=== PATIENT | female | born 1970 | race Caucasian/White ===

== ENCOUNTER 2022-10-21 09:34 | Outpatient (RCR) | payer OTHER, SELFPAY | END 2022-10-22 14:00 | disposition home or self-care (01) | LOC: PT 09:34 | PROVIDERS: PCP Family Medicine; Visit Provider Family Medicine | DX: M54.30 Sciatica, unspecified side (principal) | CPT/HCPCS: 97110; 97140 ==

== ENCOUNTER 2022-11-17 09:18 | Outpatient (OUT) | payer OTHER, SELFPAY ==
--- NOTE | 2022-11-17 09:32 | MR_ITS ---
[address] [address] Patient Name: JASON CASTRO MRN: [facility]:[id number] date: 1970 Sex: F Assigned Patient Location: MRI Current Patient Location: MRI Accession/Order Number: [id number] Exam Date: 11/17/2022 09:46 Report Date: 11/17/2022 13:55 At the request of: VANE ADORNO Procedure: MR lumbar spine wo con EXAM: MR lumbar spine wo con CLINICAL INDICATION: DORSALGIA, UNSPECIFIED M54,9, LUMBAR RADICULOPATHY M54.16 COMPARISON: None TECHNIQUE/PROTOCOL: Noncontrast lumbar spine MR protocol (Sagittal T1, T2, STIR and axial T1, T2 sequences). FINDINGS: Presumed five lumbar-type vertebral bodies with maintained heights and alignment. No marrow edema. Several small vertebral hemangiomas at L1, L3, and L5. No acute prevertebral or paraspinal soft tissue abnormalities. Conus terminates at mid L1. Visualized distal spinal cord and the cauda equina are normal in size. Incidental hyperintense T2 left renal cyst measures 1.7 cm. Mild multilevel spondylotic changes include varying degrees of intervertebral disc height loss, disc desiccation, osteophytic ridging, and facet/ligamentum flavum hypertrophy. T12-L1: Small disc bulge minimally indents the ventral thecal sac. No high-grade spinal canal or foraminal narrowing. L1-L2: No disc bulge or herniation. No high-grade spinal canal or foraminal narrowing. Mild bilateral facet/ligamentum flavum hypertrophy. L2-L3: No disc bulge or herniation. No high-grade spinal canal or foraminal narrowing. Mild bilateral facet/ligamentum flavum hypertrophy. L3-L4: Small disc bulge with superimposed central disc protrusion together efface the ventral thecal sac. A 1.8 x 1.1 x 1.1 cm hyperintense T2 cyst arises from the left facet and effaces the lateral left thecal sac with locoregional mass effect. These together contribute to moderate to advanced spinal canal narrowing. No high-grade foraminal narrowing. Mild bilateral facet/ligamentum flavum hypertrophy. Small bilateral facet effusions. L4-L5: No disc bulge or herniation. No high-grade spinal canal or foraminal narrowing. Advanced bilateral facet/ligament flavum hypertrophy. Small bilateral facet joint effusions. L5-S1: No disc bulge or herniation. No high-grade spinal canal or foraminal narrowing. IMPRESSION: 1. A 1.8 x 1.1 cm intracanalicular left facet joint cyst at L3-L4 in conjunction with a disc bulge and superimposed central disc protrusion altogether result in moderate to advanced spinal canal narrowing. There is locoregional mass effect on the thecal sac. 2. Mild multilevel spondylotic changes. No high-grade foraminal narrowing at any lumbar level. Electronically authenticated by: MATIAS CARRASCO Date: 11/17/2022 13:55
== END 2022-11-17 09:19 | disposition home or self-care (01) ==
LOC: MRI 09:18
PROVIDERS: PCP Family Medicine; Visit Provider Family Medicine
DX: M54.9 Dorsalgia, unspecified (principal); M54.16 Radiculopathy, lumbar region
CPT/HCPCS: 72148

== ENCOUNTER 2023-04-26 07:42 | Outpatient (OUT) | payer OTHER, SELFPAY ==
--- NOTE | 2023-04-26 07:46 | CT_ITS ---
[address] [address] Patient Name: JASON CASTRO MRN: [facility]:[id number] date: 1970 Sex: F Assigned Patient Location: CT Current Patient Location: CT Accession/Order Number: [id number] Exam Date: 04/26/2023 07:56 Report Date: 04/26/2023 13:08 At the request of: NON-STAFF PHYSICIAN Procedure: CT lumbar spine wo con EXAM: CT lumbar spine wo con CLINICAL INDICATION: Lumbar Spondylosis, Preprocedural Examination Z01.818 COMPARISON: MRI lumbar spine 11/17/2022. TECHNIQUE: Multiple axial images were obtained of the lumbar spine. Soft tissue and bone windows in coronal and sagittal planes were obtained and reviewed. Dose reduction techniques were achieved by using automated exposure control and/or adjustment of mA and/or kV according to patient size and/or use of iterative reconstruction technique. FINDINGS: Segmentation: Transitional lumbosacral anatomy with partial sacralization of L5. Prior to any spine procedure, please confirm vertebral body counts. Trauma: No fracture, traumatic malalignment, facet dislocation, or discrete epidural hemorrhage. Alignment: Normal. Vertebral Body Heights: Maintained. Soft Tissues: Normal. Spondylotic Changes: Multilevel spondylotic changes with osteophytic ridging, endplate sclerosis, and varying degrees of facet hypertrophy. These are better visualized in detail on MRI 11/17/2022. Known left facet joint cyst and disc bulge/protrusion at L3-L4 are also better visualized on prior MRI. CT/CT lumbar spine wo con IMPRESSION: 1. No acute osseous abnormalities in the lumbar spine 2. Transitional lumbosacral anatomy with partial sacralization of L5. Prior to any spine procedure, please confirm vertebral body counts. 3. Multilevel spondylotic changes are better visualized in detail on MRI 11/09/2022, including the known left facet joint cyst and disc bulge/protrusion at L3-L4. Electronically authenticated by: MATIAS CARRASCO Date: 04/26/2023 13:08
== END 2023-04-26 07:43 | disposition home or self-care (01) ==
LOC: CT 07:42
PROVIDERS: PCP Family Medicine
DX: Z01.818 Encounter for other preprocedural examination (principal); M43.16 Spondylolisthesis, lumbar region
CPT/HCPCS: 72131

== ENCOUNTER 2023-08-05 07:46 | Outpatient (OUT) | payer OTHER, SELFPAY ==
--- OUTSIDE RECORDS SUMMARY | 2023-08-05 07:49 | XMS_ITS | CCD ---
Author Name Unknown Address [address] [place] [address] Organization [facility] Care Team Providers Care Tax Associate Attorney Name Role Phone RADHA PERKINS Admitting Unavailable GREGORIO, RADHA Primary Care Unavailable RADHA PERKINS Consulting Unavailable RADHA PERKINS Attending Unavailable HOY ., DR CIFUENTES Admitting Unavailable HOY ., DR CIFUENTES Primary Care Unavailable HOY ., DR CIFUENTES Consulting Unavailable HOY ., DR CIFUENTES Attending Unavailable GRANDVIEW, DR CARROL Bautista Consulting Unavailable HOY ., DR CIFUENTES Admitting Unavailable HOY ., DR CIFUENTES Primary Care Unavailable HOY ., DR CIFUENTES Consulting Unavailable HOY ., DR CIFUENTES Attending Unavailable HOY ., DR CIFUENTES Admitting Unavailable HOY ., DR CIFUENTES Primary Care Unavailable HOY ., DR CIFUENTES Attending Unavailable ELGAFY, CEDRIC Admitting Unavailable ELGAFY, CEDRIC Attending Unavailable ELGAFY, CEDRIC Referring Unavailable ELGAFY, CEDRIC Attending Unavailable ELGAFY, CEDRIC Referring Unavailable ELGAFY, CEDRIC Referring Unavailable ELGAFY, CEDRIC Referring Unavailable ELGAFY, CEDRIC Referring Unavailable ELGAFY, CEDRIC Attending Unavailable ELGAFY, CEDRIC Attending Unavailable ELGAFY, CEDRIC Attending Unavailable ELGAFY, CEDRIC Attending Unavailable Allergies Allergy Classification Reported Allergen(s) Allergy Type Date of Onset Reaction(s) Facility (1 source) ALLERGIES NOT ON FILE; Translations: [ALLERGIES NOT ON FILE] Propensity to adverse reactions (disorder) [facility] Repository Problems Active Problems Problem Classification Problem Date Documented Da te Episodic/Chronic Nausea and vomiting (2 sources) Nausea; Translations: [Nausea] Onset: 05-06-2023 Episodic Other acquired deformities (2 sources) Spondylolisthesi s, lumbar region; Translations: [Spondylolisthes is, lumbar region] Onset: 05-06-2023 Episodic Other connective tissue disease (2 sources) Other bursal cyst, other site; Translations: [Other bursal cyst, other site] Onset: 06-22-2023 Episodic Residual codes; unclassified (2 sources) Pain, unspecified; Translations: [Pain, unspecified] Onset: 05-06-2023 Episodic Unclassified (3 sources) COUGH, UNSPECIFIED; Translations: [COUGH, UNSPECIFIED] Onset: 05-12-2022 Unclassified (1 source) CONTACT W/AND (SUSP) EXPOS COVID-19; Translations: [CONTACT W/AND (SUSP) EXPOS COVID-19] Onset: 05-12-2022 Unclassified (2 sources) Post-op; Translations: [Post-op] Onset: 08-03-2023 Unclassified (1 source) Low back pain, unspecified; Translations: [Low back pain, unspecified] Onset: 04-05-2023 Viral infection (4 sources) COVID-19; Translations: [COVID-19] Onset: 11-30-2021 Past or Other Problems Problem Classification Problem Date Documented Da te Episodic/Chronic Immunizations and screening for infectious disease (1 source) Encounter for immunization; Translations: [ENCOUNTER FOR IMMUNIZATION] Onset: 12-01-2021 Episodic Other screening for suspected conditions (not mental disorders or infectious disease) (4 sources) Encounter for screening mammogram for malignant neoplasm of breast; Translations: [ENC SCR MAMMO MALIG NEOPLASM BREAST] Onset: 05-07-2022 Episodic Residual codes; unclassified (1 source) Family history of malignant neoplasm of breast; Translations: [FAMILY HX MALIG NEOPLASM OF BREAST] Onset: 05-12-2022 Episodic Residual codes; unclassified (2 sources) Family history of diseases of the blood and blood-forming organs and certain disorders involving the immune mechanism; Translations: [Family history of diseases of the blood and blood-forming organs and certain disorders involving the immune mechanism] Onset: 04-27-2023 Episodic Spondylosis; intervertebral disc disorders; other back problems (4 sources) Sciatica, unspecified side; Translations: [SCIATICA UNSPECIFIED SIDE] Onset: 07-23-2022 Episodic Unclassified (1 source) COUGH, UNSPECIFIED; Translations: [COUGH, UNSPECIFIED] Onset: 05-10-2022 Unclassified (1 source) Low back pain, unspecified; Translations: [Low back pain, unspecified] Onset: 04-05-2023 Results Test Name Value Interpretation Reference Range Facility Office Visiton 08-03-2023 Follow-up visit [id number] BrowerAnn-Marie S 1970 Date Provider Department Center 08/03/2023 CEDRIC POON MP ORTHO MPORTHO No family history on file Level of Service:83901 CT POSTOP FOLLOW UP VISIT RELATED TO ORIGINAL PX (GC) Reason for Visit and Comments: Post-op [483] [facility] Refillon 07-13-2023 Refill [id number] Ann-Marie Brower 1970 Date Provider Department Center 07/13/2023 [id number] TRIVEDI [facility] No family history on file Reason for Visit and Comments: Med Refill [[id number]] [facility] Office Visiton 06-22-2023 Follow-up visit [id number] Ann-Marie Brower 1970 Date Provider Department Center 06/22/2023 CEDRIC POON MP ORTHO MPORTHO No family history on file Level of Service:62751 CT POSTOP FOLLOW UP VISIT RELATED TO ORIGINAL PX (GC) Reason for Visit and Comments: Pain [136] Post-op [483] [facility] 36on 05-30-2023 36 called in stating that they need to change her PO appointment. Also asked if they can have a refill on her pain medication. Appointment was changed to 06/22 and prescription was sent to Dr. Alexis to be signed. [facility] Refillon 05-30-2023 Refill [id number] Ann-Marie Brower 1970 Date Provider Department Center 05/30/2023 CEDRIC POON MP ORTHO MPORTHO No family history on file [facility] Office Visiton 05-19-2023 Follow-up visit [id number] Ann-Marie Brower 1970 F Date Provider Department Center 05/19/2023 CEDRIC POON MP ORTHO MPORTHO No family history on file Level of Service:70178 CT POSTOP FOLLOW UP VISIT RELATED TO ORIGINAL PX (GC) Reason for Visit and Comments: Post-op [483] [facility] 36on 05-18-2023 36 Done please fax [facility] 36 Office note needs to State rolling walker is needed because a cane is unsafe to use. Attn: Coby [phone] [facility] 36on 05-09-2023 36 What do they need Normal [facility] 36 fax number for medical supply co. 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 cholecalciferol 25 MCG (1000 units) tablet Commonly known as: Vitamin D-3 Take 1 tablet (1,000 Units) by mouth in the morning. cyclobenzaprine 5 mg tablet Commonly known as: Flexeril Take 1 tablet (5 mg) by mouth if needed in the morning, at noon, and at bedtime for muscle spasms. docusate sodium 100 mg capsule Commonly known as: Colace Take 1 capsule (100 mg) by mouth in the morning and at bedtime. ergocalciferol 1.25 MG (43566 Units) capsule Commonly known as: Vitamin D-2 Take 1 capsule (50,000 Units) by mouth 1 (one) time per week for 12 doses. oxyCODONE 5 mg immediate release tablet Commonly known as: Roxicodone Take 1 tablet (5 mg) by mouth every 6 (six) hours if needed for severe pain (8-10 pain score) for up to 7 days. promethazine 12.5 mg tablet Commonly known as: Phenergan Take 1 tablet (12.5 mg) by mouth every 8 (eight) hours if needed for nausea or vomiting for up to 5 days. CONTINUE taking these medications Instructions Last Dose Given Next Dose Due albuterol 90 mcg/actuation inhaler cetirizine 10 mg tablet Commonly known as: ZyrTEC fluticasone propion-salmeteroL 250-50 mcg/dose diskus inhaler Commonly known as: Advair Diskus lisinopril 20 mg tablet montelukast 10 mg tablet Commonly known as: Woodyulair Where to Get Your Medications These medications were sent to [facility] [address] [place] [address] [place] [address] acetaminophen 500 mg tablet cholecalciferol 25 MCG (1000 units) tablet cyclobenzaprine 5 mg tablet docusate sodium 100 mg capsule ergocalciferol 1.25 MG (25885 Units) capsule oxyCODONE 5 mg immediate release tablet promethazine 12.5 mg tablet Activity Do not drive or drink alcohol while taking narcotic pain medications. No heavy lifting, bending, twisting. Otherwise activity as tolerated. No tub baths, swimming, or submerging your incision. Keep clean and dry until your follow-up visit Diet Regular Allergies Patient has no known allergies. Hospital Course L 3-4 posterior lumbar spine decompression, excision of intraspinal extradural lesion, L 3-5 instrumentation and fusion Pertinent Physical Exam At Time of Discharge Physical Exam Wound clean and dry Motor 5/5 a; bentley muscle groups Lab Results Labs Reviewed VITAMIN D 25 HYDROXY - Abnormal Result Value Vit D, 25-Hydroxy 12.8 (*) CBC - Abnormal Auto WBC 14.29 (*) RBC 4.27 Hemoglobin 10.5 (*) Hematocrit 33.2 (*) MCV 77.8 (*) MCH 24.6 (*) MCHC 31.6 (*) RDW 15.7 (*) Platelets 351 POCT GLUCOSE METER UNSOLICITED RESULTS - Normal Glucose POC 101 Narrative: Waived Testing in the ED is performed under the ED CLIA certificate #[id number]. BASIC METABOLIC PANEL Sodium 136 Potassium 4.1 Chloride 105 CO2 25 BUN 11 Creatinine 0.81 Glucose 96 Calcium 9.0 Anion Gap 10 eGFR 87.3 BUN/Creatinine Ratio 13.6 Issues Requiring Follow-Up Wound healing Outpatient Follow-Up Future Appointments Date Time Provider Department Center 05/19/2023 1:40 PM Cedric Alexis MD MP ORTHO MPORTHO Test Results Pending At Discharge [facility] Telephoneon 05-09-2023 Telephone [id number] Ann-Marie Brower 1970 F Date Provider Department [place] 05/09/2023 Jimbo-HOMERO ROSA MP ORTHO MPORTHO No family history on file Reason for Visit and Comments: Request For Order(s) [706] Normal [facility] 30on 05-08-2023 30 The patient is Moderately Stable - Low risk of patient condition declining or worsening The patient's goals for the shift include comfort The clinical goals for the shift include comfort, safety Over the shift, the patient did not make progress toward the following goals. Barriers to progression include N/A. Recommendations to address these barriers include N/A. Problem: Resident experiences pain/discomfort Goal: I will maintain an acceptable level of pain Outcome: Progressing Problem: Pain - Adult Goal: Verbalizes/displays adequate comfort level or baseline comfort level Outcome: Progressing Problem: Safety - Adult Goal: Free from fall injury Outcome: Progressing Problem: Discharge Planning Goal: Discharge to home or other facility with appropriate resources Outcome: Progressing Problem: Chronic Conditions and Co-morbidities Goal: Patient's chronic conditions and co-morbidity symptoms are monitored and maintained or improved Outcome: Progressing Normal [facility] 30 Daily Case Managemen t Update Multidisciplinary rounds have been completed. Barriers to Discharge: POD#2 L3-L5 decomp and fusion with excision of synovial cyst. AAT. PT/OT recs home with rolling walker, RTS and BSC. Scripts and F2F submitted to [employer] in [place]. Patient is having pain issues. Likely d/c tomorrow. Diet: Dietary Orders (From admission, onward) Start Ordered 05/06/231758 Regular Diet Diet effective now Question: Room Service? Answer: Yes 05/06/231758 Physician Expected Discharge Date: 05/08/2023 Discharge Delays: PT Six Click Score: 17 OT Six Click Score: 21 PT Recommendations: Home, With assist, Outpatient PT OT Recommendations: Home Is expected discharge disposition appropriate for patient?: Yes New Consults: Ancillary Consults (From admission, onward) Start Ordered 05/06/231757 Inpatient consult to Case Management Once Provider: (Not yet assigned) Question: Reason for Consult? Answer: Medical equipment 05/06/231756 Therapy Orders (From admission, onward) Start Ordered 05/06/231757 PT eval and treat Until therapy completed Question: Reason for PT? Answer: Post muscular skeletal surgical procedure 05/06/23175605/06/231757 OT eval and treat Until therapy completed Question: Reason for OT? Answer: Post muscular skeletal surgical procedure 05/06/231756 Normal [facility] BASIC METABOLIC PANELon 04-22 Anion gap [Moles/Vol] 10 mmol/L Normal 7-20 [facility] Comment on above: Performed By: #### L [id number] ####[facility] [place] [address] Calcium [Mass/Vol] 9.0 mg/dL Normal 8.6-10.3 [facility] Comment on above: Performed By: #### L [id number] ####[facility] ([facility])[address] [place] [address] Chloride [Moles/Vol] 105 mmol/L Normal 98-107 [facility] Comment on above: Performed By: #### L [id number] ####[facility] ([facility])[address] [place] [address] CO2 [Moles/Vol] 25 mmol/L Normal 21-31 [facility] Comment on above: Performed By: #### L [id number] ####[facility] ([facility])[address] [place] [address] Creatinine [Mass/Vol] 0.81 mg/dL Normal 0.60-1.20 [facility] Comment on above: Performed By: #### L [id number] ####[facility] ([facility])[address] [place] [address] GLOMERULAR FILTRATION RATE ML/MIN/1.73 SQ M.PREDICTED 87.3 mL/min/1.73m*2 Normal >60.0 [facility] Comment on above: Result Comment: The [facility]???s estimated glomerular filtration rate (eGFR) will no longer include consideration of race in its calculation. The National Kidney Foundation???s eGFR Task Force developed new recommendations for the estimation of the glomerular filtration rate in the [place] They recommend immediate implementation of the new equation refit without the race variable in all laboratories because the calculation does not include race. In addition to not including race in the calculation and reporting, it included diversity in its development, and has acceptable performance characteristics and potential consequences that do not disproportionately affect any one group of individuals. Performed By: #### L [id number] ####[facility] ([facility])[address] [place] [address] Glucose [Mass/Vol] 96 mg/dL Normal 70-100 [facility] Comment on above: Performed By: #### L [id number] ####[facility] ([facility])[address] [place] [address] Potassium [Moles/Vol] 4.1 mmol/L Normal 3.5-5.1 [facility] Comment on above: Performed By: #### L [id number] ####[facility] ([facility])[address] [place] [address] Sodium [Moles/Vol] 136 mmol/L Normal 136-145 [facility] Comment on above: Performed By: #### L [id number] ####[facility] [place] [address] Urea nitrogen [Mass/Vol] 11 mg/dL Normal 7-25 [facility] Comment on above: Performed By: #### L [id number] ####[facility] ([facility])[address] [place] [address] UREA NITROGEN/CREATININE (MASS RATIO) IN SER/PLAS 13.6 Normal [facility] Comment on above: Performed By: #### L [id number] ####[facility] ([facility])[address] [place] [address] CBCon 05-07-2023 Erythrocyte distribution width (RBC) [Ratio] 15.7 % High 11.5-15.0 [facility] Comment on above: Performed By: #### L [id number] #### [facility] ([facility]) [address] [place] [address] ERYTHROCYTE MEAN CORPUSCULAR HEMOGLOBIN CONCENTRATION (G/DL) BY AUTOMATED 31.6 g/dL Low 32.0-35.0 [facility] Comment on above: Performed By: #### L [id number] #### [facility] ([facility]) [address] [place] [address] Hematocrit (Bld) [Volume fraction] 33.2 % Low 36.0-48.0 [facility] Comment on above: Performed By: #### L [id number] #### [facility] ([facility]) [address] [place] [address] Hemoglobin (Bld) [Mass/Vol] 10.5 g/dL Low 12.0-15.0 [facility] Comment on above: Performed By: #### L [id number] #### [facility] ([facility]) [address] [place] [address] MCH (RBC) [Entitic mass] 24.6 pg Low 27.0-33.0 [facility] Comment on above: Performed By: #### L [id number] #### [facility] ([facility]) [address] [place] [address] MCV (RBC) [Entitic vol] 77.8 fL Low 82.0-98.0 [facility] Comment on above: Performed By: #### L [id number] #### [facility] ([facility]) [address] [place] [address] PLATELETS (10*3/UL) IN BLOOD AUTOMATED COUNT 351 10*3/uL Normal 150-400 [facility] Comment on above: Performed By: #### L [id number] #### [facility] ([facility]) [address] [place] [address] RBC (Bld) [#/Vol] 4.27 10*6/uL Normal 3.80-5.00 [facility] Comment on above: Performed By: #### L [id number] #### [facility] ([facility]) [address] [address] WBC (Bld) [#/Vol] 14.29 10*3/uL High 4.00-10.60 [facility] Comment on above: Performed By: #### L [id number] #### [facility] ([facility] [address] [place] [address] HPon 05-06-2023 HP H&P reviewed. The patient was examined and there are no changes to the H&P. Normal [facility] NURSNOTEon 05-06-2023 NURSNOTE at bedside Normal [facility] OPNOTEon 05-06-2023 OPNOTE L3-5 DECOMPRESSION, FUSION, SPINE, LUMBAR, EXCISION OF SYNOVIAL CYST (L) Operative Note Date: 05/06/2023 Location: [facility] OR Name: Ann-Marie Brower, : 1970, Surgeons * Cedric Alexis - Primary Senior Validation Engineer: Rafael Oh M.D. Preoperative Diagnosis: L 3-4 facet arthropathy spinal canal stenosis due to intraspinal extradural lesion (ICD-10 M99.53, M54.16). L 4-5 grade I spondylolisthesis with foramina stenosis (ICD-10 M43.16, M99.53, M54.16). Postoperative Diagnosis: L 3-4 facet arthropathy spinal canal stenosis due to intraspinal extradural lesion (ICD-10 M99.53, M54.16). L 4-5 grade I spondylolisthesis with foramina stenosis (ICD-10 M43.16, M99.53, M54.16). OPERATION: 1. L 3-4 posterior lumbar spine decompression, excision of intraspinal extradural lesion (66176, 59308). 2. L 3-5 posterolateral fusion using autograft, crushed cancellous allograft and [employer]iGen ([id number]). 3. L 3-5 instrumentation using Expedium system from [employer] (02766). 4. Local bone autograft harvesting and use of crush cancellous allograft (69313, 58591). 5. Use of intraoperative fluoroscopy (23867). Procedure Summary Anesthesia: General ASA: II Position: Prone position on the Esteban table in reverse Trendelenburg position. Estimated Blood Loss: 300 mL Total IV Fluids: 1000 mL crystalloid Drains: Hemovac Closed/Suction Drain Posterior Back Accordion (Active) Urethral Catheter Non-latex 16 Fr. (Active) Implants Type Name Action Serial No. Bone TISSUE,BONE,CANC-CHIPS, 90CC - [id number] - [id number] Implanted [id number] Allograft Tissue TISSUE,VIVIGEN,10CC - [id number] - [id number] Implanted [id number] Allograft Tissue TISSUE,VIVIGEN,10CC - [id number] - [id number] Implanted [id number] SPINE SCREW 7 X 40 Implanted SPINE SCREWS 7 X 45 Implanted Screw SETSCREW,INNER,SINGLE - [id number] Implanted SPINE MELISSA 65 MM Implanted Screw SETSCREW,INNER,SINGLE - [id number] Wasted Staff: Actor Understudy: Hetal Rajan RN Relief Actor Understudy: Karine Fowler RN Relief Scrub: Dawna Peña CST Scrub Person: Whitley Chavez CST Complications: None. Counts: Needle, sponge, and instrument count correct at the end of surgical procedure. Disposition: The patient was transferred to the recovery room, extubated in a stable condition. Indications: Ann-Marie Brower is an 52 y.o. female who was seen in the clinic with a chief complaint of back pain as well as radicular pain in the left lower extremity. X-ray as well as MRI scan has confirmed L3-4 facet arthropathy with left synovial cyst causing spinal canal stenosis, also GradeI unstable L4-5 spondylolisthesis. Due to severity of symptoms affecting daily activity and failure of conservative treatment including modification of activity, physical therapy, and spine injection, the patient was keen on the above-mentioned surgical procedure. We explained to the patient risks and benefits of the above-mentioned surgical procedure, which include but not limited to intraoperative complications from anesthesia including , dural tear, spinal cord or nerve root injury that may result in temporary or permanent paralysis, malposition of hardware that may require revision, injury to the intraabdominal organs that may require exploration and repair. Postoperative complications include, but not limited to blindness, infection, DVT/PE, incomplete relief of symptoms, pseudoarthrosis, and requirement of further surgery at the same or adjacent level. The patient fully understood risks and benefits and signed consent for surgery as well as blood transfusion. The patient had been cleared for surgery by his family doctor. The patient also has been seen in preoperative clinic at [facility]. Description of Procedure: The patient was taken to the operating room today and was positively identified, received a smooth general endotracheal intubation and received IV antibiotic for surgical prophylaxis. Under aseptic condition, a Vila catheter was inserted. Thigh-high CHECO stockings as well as sequential compression devices used for DVT prophylaxis. Spinal cord monitoring leads were applied. The patient was positioned prone on the Esteban table in reverse Trendelenburg position. All bony prominences were carefully padded. The C-arm was brought into AP and lateral position and marked level of skin incision centered over L 3-5 disk space. The skin was then prepped and draped in the usual manner. The intended area of skin incision was then infiltrated with 10 mL of 0.5% Marcaine with epinephrine. A midline exposure with sharp dissection, electrocautery dissection, and periosteal elevator exposed the transverse process of L3, L4 and L5 bilaterally. After confirmation of correct level of surgery with fluoroscopy, attention was directed for insertion of the pedicle screws. Using anatomical landmarks and under (more content not included)... Normal [facility] POCT GLUCOSE METER UNSOLICIT ED RESULTSon 05-06-2023 Glucose [Mass/Vol] 101 mg/dL Normal 70-105 [facility] Comment on above: Order Comment: Waive d Testing in the ED is performed under the ED CLIA certificate #[id number]. Result Comment: liz velasquez Performed By: #### L [id number] #### [facility] ([facility]) [address] [place] [address] VITAMIN D 25 HYDROXYon 05-06 CALCIDIOL (25 [place] VITAMIN D3) (NG/ML) IN SER/PLAS 12.8 ng/mL Low 30.0-80.0 [facility] Comment on above: Result Comment: >80. 0 Toxicity possible Performed By: #### L [id number] ####[facility] ([facility])[address] [place] [address] 36on 05-05-2023 36 Detailed message sriram canas Advised to return call with any questions or concerns. [facility] 36on 05-04-2023 36 Diara from [employer]- calling stating patient has sx Tuesday and needs to go over insurance information with sx coordinator/financial sales manager [facility] 36 Letter written, marni lomax fax. [facility] 36 Patient states she needs a doctors note faxed to her [facility] that she has surgery on Tuesday. Fax- [phone] [facility] [facility]-04-2023 Telephone [id number] Ann-Marie Brower 1970 F Date Provider Department [place] 05/04/2023 HOMERO ALBERT MP [facility] No family history on file Reason for Visit and Comments: letter [Other] [facility] [id number] 04-27-2023 [id number] Nothing to Eat or Drink, including Candy, Gum, Mints, and Tobacco after Midnight the night before surgery. Use your inhaler(s) the day of surgery. Hold Vitamins, Supplements, and NSAIDS for 1 week prior to surgery. Hold LISINOPRIL 24 hours prior to surgery. Hold all other meds the morning of surgery. IF YOU ARE GOING HOME AFTER YOUR SURGERY OR PROCEDURE, FOR YOUR SAFETY, YOUR SURGERY WILL BE CANCELLED IF BOTH OF THE FOLLOWING ARE NOT AVAILABLE: An adult warehouse associate driver over the age of 18, that can receive information about your care after surgery, and drive you home. A responsible adult to stay with you for 24 hours in case of an emergency. Can be same as above. The highest risk of complications is within the first 24 hours after sedation/anesthesia. Nothing to eat or drink after midnight the night before surgery. This includes gum, candy, mints, and lozenges. No alcohol, marijuana, or tobacco products including vaping for 24 hours. Please brush your teeth; don't swallow the toothpaste or water. If you use dentures, wear them but do not use paste. Please leave any other removable dental hardware at home. Do not put in contact lenses. Do not wear perfume, make-up, nail welsh, or lotions on the day of your surgery or procedure. Follow skin-prep/wipe instructions as below if required. Bring with you: *Insurance card *Photo ID *Medication list *Co-pay for visit/prescriptions If applicable: *Rescue inhalers *Green bracelet from lab *CPAP or BiPAP machine, if staying overnight *Any braces, splints, or equipment ordered preoperatively *Remote controls for implanted devices Leave at home: *Purse/Wallet/Gerber- unless needed for co-pay *Cell phone (can leave with family/friend or place in locker if needed) *Jewelry (including piercings and wedding bands) *If not possible, ask the person who is waiting with you to keep them Children under the age of 12 will not be allowed into patient care areas. We will call you between 3pm and 4pm the day before your surgery to give you an arrival time. If you do not receive this call, have any questions, or need to make any changes, please call [phone]. Notify your surgeon if you develop any illness such as a cold, cough, fever, sore throat or vomiting between now and your surgery. Thank you for entrusting us with your care. [facility] Surgical Services Team Normal [facility] 36on 04-27-2023 36 Spoke to kaleb Jimenez states she was just checking to see if we wanted an internal or external appeal. We will start with internal appeal and then go to external appeal if needed. Tony states we should have a response by the end of the week, she will call and let me know as well as faxing the decision over. Normal [facility] 36 Insurance company calling had additional questions about the appeal sent in yesterday. [facility] APTTon 04-27-2023 ACTIVATED PARTIAL THROMBOPLASTIN TIME IN PPP BY COAGULATION ASSAY 37.0 Seconds High 25.0-35.0 [facility] Comment on above: Result Comment: Clin ical significance of the APTT is questionable in the presence of heparin. Performed By: #### L [id number] #### [facility] ([facility]) [address] [place] [address] BASIC METABOLIC PANELon 12-0 Anion gap [Moles/Vol] 13 mmol/L Normal 7-20 [facility] Comment on above: Performed By: #### L [id number] #### [facility] [address] [place] [address] Calcium [Mass/Vol] 10.7 mg/dL High 8.6-10.3 [facility] Comment on above: Performed By: #### L [id number] #### [facility] ([facility] [address] [place] [address] Chloride [Moles/Vol] 104 mmol/L Normal 98-107 [facility] Comment on above: Performed By: #### L [id number] #### [facility] ([facility] [address] [place] [address] CO2 [Moles/Vol] 25 mmol/L Normal 21-31 [facility] Comment on above: Performed By: #### L [id number] #### [facility] ([facility]) [address] [place] [address] Creatinine [Mass/Vol] 0.87 mg/dL Normal 0.60-1.20 [facility] Comment on above: Performed By: #### L [id number] #### [facility] ([facility]) [address] [place] [address] GLOMERULAR FILTRATION RATE ML/MIN/1.73 SQ M.PREDICTED 80.1 mL/min/1.73m*2 Normal >60.0 [facility] Comment on above: Result Comment: The [facility]???s estimated glomerular filtration rate (eGFR) will no longer include consideration of race in its calculation. The National Kidney Foundation???s eGFR Task Force developed new recommendations for the estimation of the glomerular filtration rate in the [place] They recommend immediate implementation of the new equation refit without the race variable in all laboratories because the calculation does not include race. In addition to not including race in the calculation and reporting, it included diversity in its development, and has acceptable performance characteristics and potential consequences that do not disproportionately affect any one group of individuals. Performed By: #### L [id number] #### [facility] ([facility]) [address] [place] [address] Glucose [Mass/Vol] 103 mg/dL High 70-100 [facility] Comment on above: Performed By: #### L [id number] #### [facility] ([facility]) [address] [place] [address] Potassium [Moles/Vol] 3.9 mmol/L Normal 3.5-5.1 [facility] Comment on above: Performed By: #### L [id number] #### [facility] ([facility]) [address] [place] [address] Sodium [Moles/Vol] 138 mmol/L Normal 136-145 [facility] Comment on above: Performed By: #### L [id number] #### [facility] ([facility]) [address] [place] [address] Urea nitrogen [Mass/Vol] 12 mg/dL Normal 7-25 [facility] Comment on above: Performed By: #### L [id number] #### [facility] ([facility]) [address] [place] [address] UREA NITROGEN/CREATININE (MASS RATIO) IN SER/PLAS 13.8 Normal [facility] Comment on above: Performed By: #### L [id number] #### [facility] ([facility]) [address] [place] [address] CBC WITH AUTO DIFFERENTIALon 04-27-2023 Basophils (Bld) [#/Vol] 0.06 10*3/uL Normal 0.00-0.20 [facility] Comment on above: Performed By: #### L [id number] #### [facility] ([facility]) [address] [place] [address] Basophils/100 WBC (Bld) 0.6 % Normal 0.0-1.0 [facility] Comment on above: Performed By: #### L [id number] #### [facility] ([facility]) [address] [place] [address] Eosinophils (Bld) [#/Vol] 0.44 10*3/uL Normal 0.00-0.50 [facility] Comment on above: Performed By: #### L [id number] #### [facility] ([facility]) [address] [place] [address] Eosinophils/100 WBC (Bld) 4.2 % Normal 0.0-6.0 [facility] Comment on above: Performed By: #### L [id number] #### [facility] ([facility]) [address] [place] [address] Erythrocyte distribution width (RBC) [Ratio] 16.0 % High 11.5-15.0 [facility] Comment on above: Performed By: #### L [id number] #### [facility] ([facility]) [address] [place] [address] ERYTHROCYTE MEAN CORPUSCULAR HEMOGLOBIN CONCENTRATION (G/DL) BY AUTOMATED 31.4 g/dL Low 32.0-35.0 [facility] Comment on above: Performed By: #### L [id number] #### [facility] ([facility]) [address] [place] [address] Hematocrit (Bld) [Volume fraction] 39.2 % Normal 36.0-48.0 [facility] Comment on above: Performed By: #### L [id number] #### [facility] ([facility]) [address] [place] [address] Hemoglobin (Bld) [Mass/Vol] 12.3 g/dL Normal 12.0-15.0 [facility] Comment on above: Performed By: #### L [id number] #### [facility] ([facility]) [address] [place] [address] Immature granulocytes (Bld) [#/Vol] 0.04 10*3/uL Normal 0.00-0.20 [facility] Comment on above: Performed By: #### L [id number] #### [facility] ([facility]) [address] [place] [address] Immature granulocytes/100 WBC (Bld) 0.4 % Normal 0.0-1.0 [facility] Comment on above: Performed By: #### L [id number] #### [facility] ([facility]) [address] [place] [address] Lymphocytes (Bld) [#/Vol] 1.91 10*3/uL Normal 1.20-4.00 [facility] Comment on above: Performed By: #### L [id number] #### [facility] ([facility]) [address] [place] [address] Lymphocytes/100 WBC (Bld) 18.2 % Low 20.0-45.0 [facility] Comment on above: Performed By: #### L [id number] #### [facility] ([facility]) [address] [place] [address] MCH (RBC) [Entitic mass] 24.7 pg Low 27.0-33.0 [facility] Comment on above: Performed By: #### L [id number] #### [facility] ([facility]) [address] [place] [address] MCV (RBC) [Entitic vol] 78.9 fL Low 82.0-98.0 [facility] Comment on above: Performed By: #### L [id number] #### [facility] ([facility]) [address] [address] Monocytes (Bld) [#/Vol] 0.67 10*3/uL Normal 0.10-1.00 [facility] Comment on above: Performed By: #### L [id number] #### [facility] ([facility] [address] [place] [address] Monocytes/100 WBC (Bld) 6.4 % Normal 5.0-12.0 [facility] Comment on above: Performed By: #### L [id number] #### [facility] ([facility]) [address] [place] [address] Neutrophils (Bld) [#/Vol] 7.38 10*3/uL Normal 1.60-7.60 [facility] Comment on above: Performed By: #### L [id number] #### [facility] ([facility]) [address] [place] [address] Neutrophils/100 WBC (Bld) 70.2 % Normal 40.0-72.0 [facility] Comment on above: Performed By: #### L [id number] #### [facility] ([facility]) [address] [place] [address] NRBC (PER 100 WBCS) BY AUTOMATED COUNT 0.0 % Normal 0 [facility] Comment on above: Performed By: #### L [id number] #### [facility] ([facility]) [address] [place] [address] PLATELETS (10*3/UL) IN BLOOD AUTOMATED COUNT 331 10*3/uL Normal 150-400 [facility] Comment on above: Performed By: #### L [id number] #### [facility] ([facility]) [address] [place] [address] RBC (Bld) [#/Vol] 4.97 10*6/uL Normal 3.80-5.00 [facility] Comment on above: Performed By: #### L [id number] #### [facility] ([facility]) [address] [place] [address] WBC (Bld) [#/Vol] 10.50 10*3/uL Normal 4.00-10.60 [facility] Comment on above: Performed By: #### L [id number] #### [facility] ([facility]) [address] [place] [address] Consulton 04-27-2023 Consult [id number] Ann-Marie Brower 1970 F Date Provider Department Center 04/27/2023 CEDRIC POON MP ORTHO MPORTHO No family history on file Level of Service:67593 CT OFFICE/OUTPATIENT ESTABLISHED LOW MDM 20 MIN (GC) Reason for Visit and Comments: Pre-op Exam [[id number]] Normal [facility] HPon 04-27-2023 HP --- Attestation signed by Cedric Alexis MD at 04/28/2023 12:36 PM I personally saw and examined the patient on the same date of service as resident/fellow Rafael Oh. I discussed the findings and therapeutic plan with the resident/fellow Rafael Oh. I agree with the documentation, except for any edits/updates below. Teaching Physician's Revisions: Cedric Alexis Orthopedic Outpatient Visit Visit Description: new patient Chief Complaint: low back pain HPI 04/27/23 Patient is a 52-year-old female that returns to clinic today for preoperative visit. At this current time patient's surgery is only partially improved and is being resubmitted as an appeal. Patient continues to have significant pain in her back that is radiating down the left side of her leg. She states that her foot and ankle feels numb nearly all the time and that her pain appears to be getting worse. She states it is affecting her daily life and she is having difficulties late in the day with doing normal daily activities including cooking and taking care of herself. 04/06/23 Patient is a 52-year-old female with a past medical history of asthma the presents to our clinic for evaluation of low back pain that started around [place] last year 2021. Patient states that she had insidious onset back pain that progressively got worse. Patient had seen her primary care physician who sent her for physical therapy. Physical therapy was performed for 8 weeks however worsened her symptoms.Patient has recently gotten an MRI from her primary care physician was referred here for further evaluation. Patient states her pain is located in the low back and started to affect her daily activities. Her pain is worsened with standing and walking prolonged distances. Pain is relieved with sitting down. She does have occasional radicular symptoms down her left leg over the front side of her leg and down to her ankle and foot region. Patient takes bxmy-fuq-jnyorhr anti-inflammatories for pain however she does not like taking anti-inflammatories on a regular basis. Patient does not have any gait disturbances, fine hand dexterity problems. She has not had any previous corticosteroid injections for her pain. ROS Constitutional: Fatigue: No Weight loss: No Fever: No Chills: No Musculoskeletal: Neck Stiffness: No Neck Pain: No Back Stiffness: No Back Pain: No Neurologic: Headache: No Weakness: No Numbness: No Paresthesia: No Tremor: No Physical Exam Musculoskeletal Ortho spine musculoskeletal examination: Alignment spine: normal Tenderness: paraspinal Range of motion Cervical spine: normal Range of motion lumbar spine: limited Spurling Test: negative Neurological Left Side Biceps strength: 5 Wrist extension: 5 Triceps strength: 5 Finger flexors: 5 Finger abduction strength: 5 Flexion at the hip strength: 4 worse from previous exam Quadriceps strength: 4 worse on previous exam Tibialis anterior strength: 4 worse from previous exam Plantar flexion strength: 5 Extensor Hallicis Longus strength: 5 Sensory Exam: intact Straight leg raising: painful DTR/ Pathologic reflexes Biceps reflex- 2 Brachioradialis reflex- 2 Triceps reflex- 2 Patellar reflex- 2 Achilles reflex- 2 Babinski- negative Manuel reflex: Absent Right Side Biceps strength: 5 Wrist extension: 5 Triceps strength: 5 Finger flexor: 5 Finger abduction strength: 5 Flexion at the hip strength: 5 Quadriceps strength: 5 Tibialis anterior strength: 5 Plantar flexion strength: 5 Extensor Hallicis Longus strength: 5 Sensory Exam: intact Straight leg raising: negative DTR/ Pathologic reflexes Biceps reflex- 2 Brachioradialis reflex- 2 Triceps reflex- 2 Patellar reflex- 2 Achilles reflex- 2 Babinski- negative Manuel reflex: Absent Gait and station Gait and station: normal Tandem gait: normal Romberg test: normal Images: X-ray of patient's lumbar spine was performed with flexion-extension films. X-rays reviewed by myself and Dr. Alexis which demonstrated patient to have evidence of facet arthropathy of L3/4 and L4/5 and L5/S1. There is evidence of patient having grade 2 anterolisthesis of L4 on 5. MRI of patient's lumbar spine was performed which demonstrated patient to have evidence of L3-5 left-sided facet cyst within the spinal canal compressing the patient's spinal cord and displacing it to the contralateral side. Patient does have central canal stenosis at the L4-5 level. Assessment and Plan Patient is a 52-year-old female with L3-4 facet arthropathy, intraspinal extradural synovial cyst, and spinal canal stenosis , L 4-5 grade II spondylolisthesis with foramina stenosis and radiculopathy Explained the clinical and radiolog (more content not included)... Normal [facility] Labon 04-27-2023 Lab [id number] Ann-Marie Brower 1970 F Date Provider Department Center 04/27/2023 [facility] MP LAB RESOURCE MP DRAW Medical Pavi No family history on file Normal [facility] MRSA/MSSA DNA NASALon 2022 MRSA DNA Negative Normal Negative [facility] Comment on above: Order Comment: Testi ng methodology is an automated qualitative in vitro diagnostic test for the directdetection and differentiation of Staphylococcus aureus (SA) DNA and methicillin-resistant Staphylococcus aureus (MRSA) DNA from nasal swabs in patients at risk for nasal colonization. The test utilizes real-time polymerase chain reaction (PCR) for the amplification of MRSA/SA DNA and fluorogenic target-specific hybridization probes for the detection of the amplified DNA. A negative result does not preclude nasal colonization. Performed By: #### L [id number] ####[facility] ([facility]AKER)[address] [place] [address] MSSA DNA Negative Normal Negative [facility] Comment on above: Order Comment: Testi ng methodology is an automated qualitative in vitro diagnostic test for the directdetection and differentiation of Staphylococcus aureus (SA) DNA and methicillin-resistant Staphylococcus aureus (MRSA) DNA from nasal swabs in patients at risk for nasal colonization. The test utilizes real-time polymerase chain reaction (PCR) for the amplification of MRSA/SA DNA and fluorogenic target-specific hybridization probes for the detection of the amplified DNA. A negative result does not preclude nasal colonization. Performed By: #### L [id number] ####[facility] (ANGEL)[address] [place] [address] PROTIME-INRon 04-27-2023 INR IN PPP BY COAGULATION ASSAY 1.01 Normal 0.90-1.10 [facility] Comment on above: Result Comment: ACC[facility] P RECOMMENDED INR FOR WARFARIN THERAPY CONDITION INR PROPHYLAXIS OF VENOUS THROMBOSIS 2-3 (HIGH-RISK SURGERY) TREATMENT OF VENOUS THROMBOSIS 2-3 TREATMENT OF PULMONARY EMBOLISM 2-3 PREVENTION OF SYSTEMIC EMBOLISM: 2-3 ACUTE MYOCARDIAL INFARCTION TISSUE HEART VALVES VALVULAR HEART DISEASE ATRIAL FIBRILLATION RECURRENT SYSTEMIC EMBOLISM MECHANICAL HEART VALVE 2.5-3.5 FROM: ORAL ANTICOAGULANTS. MECHANISM OF ACTION, CLINICAL EFFECTIVENESS, AND OPTIMAL THERAPEUTIC RANGE. CHEST 1995;108:231S-246S. Performed By: #### L [id number] #### [facility] ([facility]) [address] [place] [address] PROTHROMBIN TIME (PT) IN PPP BY COAGULATION ASSAY 13.3 Seconds Normal 12.3-14.8 [facility] Comment on above: Performed By: #### L [id number] #### [facility] ([facility]) [address] [place] [address] TYPE AND SCREENon 04-27-2023 AB SCREEN Negative Normal [facility] Comment on above: Order Comment: Type and screen x2 units Performed By: #### L [id number] #### [facility] BLOOD BANK , ABO group Nom (Bld) O Normal [facility] Comment on above: Order Comment: Type and screen x2 units Performed By: #### L [id number] #### [facility] BLOOD BANK , RH TYPE IN BLOOD Negative Normal [facility] Comment on above: Order Comment: Type and screen x2 units Performed By: #### L [id number] #### [facility] BLOOD BANK , URINALYSIS MICROSCOPIC WITH REFLEX CULTUREon 04-27-2023 CASTS IN URINE Normal [facility] Comment on above: Performed By: #### L [id number] #### [facility] ([facility]) [address] [place] [address] CRYSTALS IN URINE Normal [facility] Comment on above: Performed By: #### L [id number] #### [facility] ([facility]) [address] [place] [address] MUCUS (#/HPF) IN URINE SEDIMENT Occasional Normal None Seen, Occasional, Few [facility] Comment on above: Performed By: #### L [id number] #### [facility] ([facility]) [address] [place] [address] OTHER MICROSCOPIC ELEMENTS Normal [facility] Comment on above: Performed By: #### L [id number] #### [facility] ([facility]) [address] [place] [address] RBC (#/HPF) IN URINE SEDIMENT 0-2 Abnormal None Seen [facility] Comment on above: Performed By: #### L [id number] #### [facility] ([facility]) [address] [place] [address] SQUAMOUS EPITHELIAL CELLS (#/HPF) IN URINE SEDIMENT Moderate Abnormal None Seen, Occasional [facility] Comment on above: Performed By: #### L [id number] #### [facility] ([facility]) [address] [place] [address] WBC (LEUKOCYTE) (#/HPF) IN URINE SEDIMENT 0-2 Abnormal None Seen [facility] Comment on above: Performed By: #### L [id number] #### [facility] ([facility]) [address] [place] [address] URINALYSIS WITH REFLEX CULTU REon 04-27-2023 BILIRUBIN, TOTAL PRESENCE IN URINE Negative Normal Negative [facility] Comment on above: Performed By: #### L [id number] #### [facility] ([facility]) [address] [place] [address] Clarity (U) Clear Normal Clear [facility] Comment on above: Performed By: #### L [id number] #### [facility] ([facility]) [address] [place] [address] Color (U) Yellow Normal Yellow [facility] Comment on above: Performed By: #### L [id number] #### [facility] ([facility]) [address] [place] [address] Glucose (U) [Mass/Vol] Negative Normal Negative [facility] Comment on above: Performed By: #### L [id number] #### [facility] ([facility]) [address] [place] [address] HEMOGLOBIN PRESENCE IN URINE Trace Abnormal Negative [facility] Comment on above: Performed By: #### L [id number] #### [facility] ([facility]) [address] [place] [address] Ketones Ql (U) Negative Normal Negative [facility] Comment on above: Performed By: #### L [id number] #### [facility] ([facility]) [address] [place] [address] LEUKOCYTE ESTERASE PRESENCE IN URINE BY TEST STRIP Negative Normal Negative [facility] Comment on above: Performed By: #### L [id number] #### [facility] ([facility]) [address] [place] [address] NITRITE PRESENCE IN URINE Negative Normal Negative [facility] Comment on above: Performed By: #### L [id number] #### [facility] ([facility]) [address] [place] [address] pH (U) 5.0 [pH] Normal 5.0-8.0 [facility] Comment on above: Performed By: #### L [id number] #### [facility] [facility] [address] [place] [address] Protein (U) [Mass/Vol] Negative Normal Negative [facility] Comment on above: Performed By: #### L [id number] #### [facility] ([facility]) [address] [place] [address] Specific gravity (U) [Rel density] 1.016 Normal 1.015-1.020 [facility] Comment on above: Performed By: #### L [id number] #### [facility] ([facility]) [address] [place] [address] 36on 04-25-2023 36 Spoke to . [facility] 36 Patient has multiple questions about her upcoming surgery [facility] Telephoneon 04-25-2023 Telephone [id number] Ann-Marie Brower 1970 [facility] 04/25/2023 HOMERO ALBERT MP ORTHO MPORTHO No family history on file [facility] 36on 04-22-2023 36 Spoke to . Advised I need a wet signature from the patient in order to send an appeal in for her surgery. He states the patient is out of town and she wont be able to come in until Tuesday. [facility] 36 I was out yesterday afternoon. I will call patient when I have a phone available. [facility] 36on 04-21-2023 36 Patients calling stated that the nurse just called. I informed him that I told the patient the nurse was out for the day. The stated the just wanted to make sure because she was anxious [facility] 36 Patient called state d the nurse just called her and shes returning the call. Theres no note in the chart. [facility] Office Visiton 04-06-2023 Follow-up visit [id number] Ann-Marie Brower 1970 Date [facility] 04/06/2023 [id number], CEDRIC MP ORTHO MPORTHO No family history on file Level of Service:43134 CT OFFICE/OUTPATIENT NEW MODERATE MDM 45-59 MINUTES (GC) Reason for Visit and Comments: New Patient [632] - NUMBNESS DOWN LEFT LEG Normal [facility] Covid-19 PCR (CVDTB)on 04-22 SARS-CoV-2 (COVID-19) RNA CHERYL+probe Ql (Unsp spec) Not detected Normal NOT DETECTED [facility] Comment on above: Result Comment: This test is not yet approved or cleared by the [place] FDA. When there are no FDA-approved or cleared tests available, and other criteria are met, FDA can make tests available under an emergency access mechanism called an Emergency Use Authorization (EUA). The EUA for this test is supported by the Supervisor Accounting Clerks of Health and Human Service's (HHS's) declaration that circumstances exist to justify the emergency use of in vitro diagnostics for the detection and/or diagnosis of the virus that causes COVID-19. This EUA will remain in effect (meaning this test can be used) for the duration of the COVID-19 declaration justifying emergency of IVDs, unless it is terminated or revoked by FDA (after which the test may no longer be used). When diagnostic testing is negative, the possibility of a false negative should be considered in the context of a patient's recent exposures and the presence of clinical signs and symptoms consistent with SARS-CoV-2. Performed By: #### C VDTB #### [facility] Laboratory [address] [place] [address] Dr. Micheal Fuentes INFLUENZA A AND B AGon 05-10 [facility] BELOW Normal [facility] Comment on above: Result Comment: Nega tive for Flu A protein angiten. Infection due to Flu A cannot be ruled out. Flu A angiten in the sample may be below the detection limit of the test. Performed By: #### I NFLUAB #### [facility] [address] [place] [address] Dr. [facility]al [facility] Normal [facility] Comment on above: Result Comment: Nega tive for Flu B protein antigen. Infection due to Flu B cannot be ruled out. Flu B antigen in the sample may be below the detection limit of the test. Performed By: #### I NFLUAB #### [facility] [address] [address] [address] Micheal Fuentes INFLUENZA A AG Negative Normal NEGATIVE SEE COMMENT [facility] Comment on above: Performed By: #### I NFLUAB #### [facility] [address] [address] [address] Micheal Fuentes INFLUENZA B AG Negative Normal NEGATIVE SEE COMMENT [facility] Comment on above: Performed By: #### I NFLUAB #### [facility] [address] [address] [address] Micheal Fuentes INTERNAL CONTROLS Within Normal Limits Normal Wi thin Normal Limits [facility] Comment on above: Performed By: #### I NFLUAB #### [facility] [address] [address] [address] Micheal Fuentes MG MAMM SCREEN 3D CHARLIE CADon 05-07-2022 MG MAMM SCREEN 3D CHARLIE CAD Patient: ANN-MARIE BROWER Exam Date: 05/07/2022 : 1970 Gender:F Ordering : DR VANE ADORNO . Admission #: [id number] Family : Order #: [id number] CLICK HERE TO VIEW EXAM RADIOLOGY REPORT PROCEDURE: MAMMOGRAM SCREENING 3D BILATERAL CAD COMPARISON: MG MAMM SCREEN CHARLIE W CAD, 03/20/2020. MG MAMM SCREEN 3D CHARLIE CAD, 03/24/2021. INDICATIONS: Screening mammography Calculator Name NCI Breast Cancer Risk Assessment Tool 5 Year Breast Cancer Risk 1.30% Lifetime Breast Cancer Risk 11.00% Personal Breast Cancer No Personal Ovarian Cancer No Treatments None Family Cancers Cousin-maternal with breast cancer at age 41. LOCATION: [facility] BREAST COMPOSITION: Scattered areas fibroglandular density. FINDINGS: DIAGNOSTIC CATEGORY 2--BENIGN FINDING. NO CHANGE FROM COMPARISON. Scattered benign-appearing nodules are present. Scattered benign-appearing calcifications are present. Scattered benign-appearing lymph nodes are present. RIGHT BREAST: No significant suspicious finding. LEFT BREAST: No significant suspicious finding. RECOMMENDATIONS: ROUTINE MAMMOGRAM AND CLINICAL EVALUATION IN 12 MONTHS. PLEASE NOTE: A NORMAL MAMMOGRAM DOES NOT EXCLUDE THE POSSIBILITY OF BREAST CANCER. A CLINICALLY SUSPICIOUS PALPABLE LUMP SHOULD BE BIOPSIED. Dictated by: Carrol Woo MD on 05/07/2022 at 09:00 Approved by: Carrol Woo MD on 05/07/2022 at 09:02 Normal [facility] Encounters Encounter Date Encounter Type Care Provider Facility Start: 08-03-2023 End: 08-03-2023 ambulatory [facility] Start: 06-22-2023 ambulatory [facility] Start: 05-19-2023 End: 05-19-2023 ambulatory [facility] Start: 05-07-2023 Evaluation and manag ement of inpatient [facility] Start: 05-06-2023 End: 05-09-2023 Encounter for preprocedural laboratory examination [facility] Start: 05-06-2023 End: 05-09-2023 Evaluation and management of inpatient [facility] Start: 05-06-2023 End: 05-06-2023 ambulatory [facility] Start: 04-27-2023 ambulatory [facility] Start: 04-27-2023 End: 04-27-2023 [facility] Start: 04-08-2023 End: 04-09-2023 ambulatory [facility] Start: 04-06-2023 End: 04-06-2023 Encounter for other preprocedural examination [facility] Start: 04-06-2023 End: 04-07-2023 ambulatory [facility] Start: 04-05-2023 End: 04-06-2023 ambulatory [facility] Start: 07-23-[address] [facility] Start: 05-10-2022 End: 05-10-[address] VNAE ADORNO . Facility:[facility] Start: 05-07-2022 End: 05-08-[address] VANE ADORNO . Facility:[facility] Start: 11-30-2021 End: 11-30-2021 ambulatory RAD[facility] PERKINS Facility:[facility] Payers Date Payer Category Payer Unknown [id number] 2022 Unknown [id number] 1970 Unknown [id number] [id number] [id number] 1970 Unknown [id number] [id number] [id number] 1970 Unknown [id number] [id number] [id number] 1970 Unknown [id number] [id number] Clinical Notes 04-06-2023 to 08-03-2023 Note Date & Type Note Facility 08-03-2023 Note ---- Attestation signed by Cedric Alexis MD at 08/03/2023 11:16 PM I personally saw and examined the patient on the same date of service as resident/fellow Otf Plunkett. I discussed the findings and therapeutic plan with the resident/fellow Otf Plunkett. I agree with the documentation, except for any edits/updates below. ---- Orthopedic Surgery Subjective 05/06/2023 L3-5 Decompression and Fusion, Spine, Lumbar, Excision Of Synovial Cyst - Left 08/03/23 Ann-Marie is roughly 3-month status post surgery as noted above. She says that her back pain is improving. She does note some low back pain after a long day of activity however. Her numbness in her left lower extremity has now gone away after surgery she is very pleased with this. Patient History Past Surgical History: Procedure Laterality Date CHOLECYSTECTOMY TONSILLECTOMY Past Medical History: Diagnosis Date Allergic rhinitis Arthritis Asthma COVID Hypertension Intervertebral disc stenosis of neural canal of lumbar region Lumbar radiculopathy OA (osteoarthritis) Plantar fasciitis Pneumonia PONV (postoperative nausea and vomiting) Spondylolisthesis of lumbar region Spondylosis with myelopathy, lumbar region Objective Exam: - Incision clean, dry, and intact. No drainage or erythema - Sensation intact to light touch in bilateral lower extremities in L3-S1 dermatomes - Motor 5/5 in bilateral lower extremities in L2-S1 -X ray good alignment of the spine, hardware in good position Assessment/Plan Ann-Marie Brower is a 52 y.o. year old female s/p L3-5 Decompression and Fusion, Spine, Lumbar, Excision Of Synovial Cyst - Left (05/06/2023) No more formal restrictions. Okay to return to work but ease into activities. Otf Plunkett MD PGY-4 Orthopedic Surgery [facility] By using the attestations below, the signing clinician agrees that I have read and verify that the documentation has been personally reviewed by me and ensure that the documentation accurately reflects the encounter. GC: I personally saw this patient on the day of the encounter, performed the bentley portion(s) of the service and participated in the management and confirm the resident's documentation. Please note there may be an additional personal documentation from me. [facility] 06-22-2023 Note ---- Attestation signed by Cedric Alexis MD at 06/22/2023 11:04 AM I personally saw and examined the patient on the same date of service as resident/fellow Sinan Blood. I discussed the findings and therapeutic plan with the resident/fellow Sinan Caraballo . I agree with the documentation, except for any edits/updates below. ---- Orthopedic Outpatient Visit Visit Description: new patient Chief Complaint: low back pain HPI 06/22/2023 Patient returns for postoperative visit for L3-5 posterior lumbar decompression fusion date of surgery 05/06/2023. Patient continues to improve. She is still taking some Tylenol and occasional Flexeril which is helping her pain. She is ambulating without assistive device. She has not been to any physical therapy. She has not started her bone stimulator. Overall she feels her left lower extremity symptoms have improved compared to preoperatively. Occasional numbness and tingling of left leg 05/19/23 Patient is a 52-year-old female that returns for her first postoperative visit 2 weeks after surgery where she underwent L3-5 posterior lumbar decompression fusion due to an L4-5 facet synovial cyst and L4-5 spondylolisthesis with foraminal stenosis and radiculopathy. Patient had surgery performed on 05/06/2023. She states that she is improving every day. She is walking at home with her walker and states she feels like she is getting stronger. Her radicular symptoms down her left lower extremity have resolved since surgery and preoperatively. She states she does have pain in her low back which she ranks 5 out of 10 today. She is taking oxycodone which she is slowly weaning off of as well as her muscle relaxer. Patient at this time is happy with the outcome of her surgery. Patient says she has not showered yet. Patient denies any weakness in her lower extremities. 04/27/23 Patient is a 52-year-old female that returns to clinic today for preoperative visit. At this current time patient's surgery is only partially improved and is being resubmitted as an appeal. Patient continues to have significant pain in her back that is radiating down the left side of her leg. She states that her foot and ankle feels numb nearly all the time and that her pain appears to be getting worse. She states it is affecting her daily life and she is having difficulties late in the day with doing normal daily activities including cooking and taking care of herself. 04/06/23 Patient is a 52-year-old female with a past medical history of asthma the presents to our clinic for evaluation of low back pain that started around [place] last year 2021. Patient states that she had insidious onset back pain that progressively got worse. Patient had seen her primary care physician who sent her for physical therapy. Physical therapy was performed for 8 weeks however worsened her symptoms.Patient has recently gotten an MRI from her primary care physician was referred here for further evaluation. Patient states her pain is located in the low back and started to affect her daily activities. Her pain is worsened with standing and walking prolonged distances. Pain is relieved with sitting down. She does have occasional radicular symptoms down her left leg over the front side of her leg and down to her ankle and foot region. Patient takes kzux-mem-jzoyfan anti-inflammatories for pain however she does not like taking anti-inflammatories on a regular basis. Patient does not have any gait disturbances, fine hand dexterity problems. She has not had any previous corticosteroid injections for her pain. ROS Constitutional: Fatigue: No Weight loss: No Fever: No Chills: No Musculoskeletal: Neck Stiffness: No Neck Pain: No Back Stiffness: No Back Pain: No Neurologic: Headache: No Weakness: No Numbness: No Paresthesia: No Tremor: No Physical Exam Musculoskeletal Ortho spine musculoskeletal examination: Incision clean dry intact well-healed. SPINE: Lower Extremities: Sensation: intact L3, L4, L5, S1 Strength: Hip flexion right 5/5 , left 4+/5 Knee Flexion 5/5 Knee Extension 5/5 EHL 5/5 Plantarflexion 5/5 Dorsiflexion 5/5 Reflexes 2+ Images: No annual postoperative x-rays were obtained today. Assessment and Plan Patient is a 52-year-old female with L3-4 facet arthropathy, intraspinal extradural synovial cyst, and spinal canal stenosis , L 4-5 grade II spondylolisthesis with foramina stenosis and radiculopathyThat is now status post L3-5 posterior spinal decompression and fusion on 05/06/2023 that is doing well -We discussed that overall the patient is making good clinical improvement. - She should use the bone stimulator. -Continue Tylenol and Flexeril as needed for pain. - Continue vitamin D - Patie (more content not included)... [facility] 05-19-2023 Note ---- Attestation signed by Cedric Alexis MD at 05/19/2023 6:18 PM I personally saw and examined the patient on the same date of service as resident/fellow Rafael Oh. I discussed the findings and therapeutic plan with the resident/fellow Rafael Oh. I agree with the documentation, except for any edits/updates below. ---- Orthopedic Outpatient Visit Visit Description: new patient Chief Complaint: low back pain HPI 05/19/23 Patient is a 52-year-old female that returns for her first postoperative visit 2 weeks after surgery where she underwent L3-5 posterior lumbar decompression fusion due to an L4-5 facet synovial cyst and L4-5 spondylolisthesis with foraminal stenosis and radiculopathy. Patient had surgery performed on 05/06/2023. She states that she is improving every day. She is walking at home with her walker and states she feels like she is getting stronger. Her radicular symptoms down her left lower extremity have resolved since surgery and preoperatively. She states she does have pain in her low back which she ranks 5 out of 10 today. She is taking oxycodone which she is slowly weaning off of as well as her muscle relaxer. Patient at this time is happy with the outcome of her surgery. Patient says she has not showered yet. Patient denies any weakness in her lower extremities. 04/27/23 Patient is a 52-year-old female that returns to clinic today for preoperative visit. At this current time patient's surgery is only partially improved and is being resubmitted as an appeal. Patient continues to have significant pain in her back that is radiating down the left side of her leg. She states that her foot and ankle feels numb nearly all the time and that her pain appears to be getting worse. She states it is affecting her daily life and she is having difficulties late in the day with doing normal daily activities including cooking and taking care of herself. 04/06/23 Patient is a 52-year-old female with a past medical history of asthma the presents to our clinic for evaluation of low back pain that started around [place] last year 2021. Patient states that she had insidious onset back pain that progressively got worse. Patient had seen her primary care physician who sent her for physical therapy. Physical therapy was performed for 8 weeks however worsened her symptoms.Patient has recently gotten an MRI from her primary care physician was referred here for further evaluation. Patient states her pain is located in the low back and started to affect her daily activities. Her pain is worsened with standing and walking prolonged distances. Pain is relieved with sitting down. She does have occasional radicular symptoms down her left leg over the front side of her leg and down to her ankle and foot region. Patient takes ivlv-yuf-byhaeac anti-inflammatories for pain however she does not like taking anti-inflammatories on a regular basis. Patient does not have any gait disturbances, fine hand dexterity problems. She has not had any previous corticosteroid injections for her pain. ROS Constitutional: Fatigue: No Weight loss: No Fever: No Chills: No Musculoskeletal: Neck Stiffness: No Neck Pain: No Back Stiffness: No Back Pain: No Neurologic: Headache: No Weakness: No Numbness: No Paresthesia: No Tremor: No Physical Exam Musculoskeletal Ortho spine musculoskeletal examination: Patient's incision was evaluated and her dressing was removed which was clean dry and intact with minimal shadowing. Patient's incision is well-approximated without any evidence of wound dehiscence, redness or, drainage or surrounding erythema. -Patient has equal and symmetric strength in bilateral lower extremities there is appropriate for this time. Postoperatively -Sensation intact L2-S1 nerve distributions bilaterally -Extremities are warm well-perfused bilaterally. Patient is ambulating with a walker Images: No annual postoperative x-rays were obtained today. Assessment and Plan Patient is a 52-year-old female with L3-4 facet arthropathy, intraspinal extradural synovial cyst, and spinal canal stenosis , L 4-5 grade II spondylolisthesis with foramina stenosis and radiculopathyThat is now status post L3-5 posterior spinal decompression and fusion on 05/06/2023 that is doing well -Patient's clinical findings were discussed with her and her who are present today. At this time we are happy with her progress and believe that she is improving and has good strength in her lower extremities. Recommend her to continue using the walker until she has sufficient strength where she can slowly start weaning from it. Patient continue taking her oxycodone and weaning as tolerated which was discussed with her during cl (more content not included)... [facility] 05-09-2023 Note ---- Attestation signed by Cedric Alexis MD at 05/09/2023 2:20 PM I personally saw and examined the patient on the same date of service as resident/fellow Rafael Oh. I discussed the findings and therapeutic plan with the resident/fellow Rafael Oh. I agree with the documentation, except for any edits/updates below. Teaching Physician's Revisions: Cedric Alexis ---- Orthopaedic Surgery Orthopaedic Surgery Progress Note Date: 05/09/2023 Surgery: 05/06/2023 - L3-5 DECOMPRESSION, FUSION, SPINE, LUMBAR, EXCISION OF SYNOVIAL CYST (L) SUBJECTIVE: NAEON, pain controlled, denies CP/SOB. No numbness, tingling, nausea/vomiting. Been walking to bathroom and working with PT/OT. Patient otherwise denies any new complaints. OBJECTIVE BP 130/73 (BP Location: Right arm, Patient Position: Lying) Pulse 88 Temp 37.1 ???C (98.8 ???F) (Oral) Resp 16 Ht 1.676 m (5' 6 ) Wt 106 kg (233 lb 4 oz) SpO2 99% BMI 37.65 kg/m??? General: No acute distress, alert and cooperative with exam MSK: Ortho spine musculoskeletal examination: No instability No visible deformity Normal muscle tone and volume Dressing is clean, dry, and intact, HV has minimal output on examination , 30 ml L 12h bloody output Upper Extremities: Sensation: intact C5, C6, C7, C8, T1 Strength: Shoulder abduction 5/5 Biceps 5/5 Triceps 5/5 Wrist Flexion 5/5 Wrist Extension 5/5 Lumbricals 5/5 Reflexes 2+ Manuel: Negative Lower Extremities: Sensation: intact L3, L4, L5, S1 Strength: Hip flexion 5/5 Knee Flexion 5/5 Knee Extension 5/5 EHL 5/5 Plantarflexion 5/5 Dorsiflexion 5/5 Reflexes 2+ Straight Leg Raise: Negative Labs Lab Results Component Value Date WBC 14.29 (H) 05/07/2023 HGB 10.5 (L) 05/07/2023 HCT 33.2 (L) 05/07/2023 MCV 77.8 (L) 05/07/2023 PLT 351 05/07/2023 Lab Results Component Value Date CALCIUM 9.0 05/07/2023 NA 136 05/07/2023 K 4.1 05/07/2023 CO2 25 05/07/2023 CL 105 05/07/2023 BUN 11 05/07/2023 CREATININE 0.81 05/07/2023 Lab Results Component Value Date INR 1.01 04/27/2023 Imaging: No X-ray results found for the past [address] results found for the past 24 hours No MRI results found for the past 24 hours ASSESSMENT: Ann-Marie Brower is a 52 y.o. female with spondylolisthesis at L4-L5 now 3 Days Post-Op L3-5 DECOMPRESSION, FUSION, SPINE, LUMBAR, EXCISION OF SYNOVIAL CYST (L) PLAN -AAT, no heavy lifting, or deep bending -Remove Hemovac -Completed postop Abx -Continue Lovenox -Vitamin D supplementation -Pain control as prescribed -Plan for discharge today to home with rolling walker, shower chair, and raised toilet seat. - discharge today Rafael Oh MD Orthopedic Surgery, PGY-3 05/09/23 2:14 PM [facility] 05-08-2023 Note Physical Therapy Physical Therapy Treatment Patient Name: Ann-Marie Brower : 1970 Today's Date: 05/08/2023 Discharge Recommendation: Home with RW and assist as needed Time Calculation Start Time 0849 Stop Time 0900 Time Calculation (min) 11 min PT Therapeutic Procedures Time Entry Self Care/Home Management (ADLs) Time Entry 10 05/08/23 0959 Time Calculation Start Time 0959 Stop Time 1030 Time Calculation (min) 31 min PT Therapeutic Procedures Time Entry Therapeutic Activity Time Entry 31 Patient Active Problem List Diagnosis Asthma HTN (hypertension) Allergic rhinitis Spondylolisthesis at L4-L5 level 05/08/23 1000 PT Last Visit PT Received On 05/08/23 General Family/Caregiver Present Yes Subjective I am terrified of the stairs. Nursing reported pt ok for therapy. Pt in recliner, initially discussed home set up and POC but requested to hold therapy until pain medication was more effective. Activity Tolerance Endurance Stage III Stage III (METs 2.0-3.0) - Sitting to Standing 10-20 mins Activity Tolerance Comments Pt performed transfers, stair negotiation, ambulation, and bed mobility with moderate increase in fatigue. Precautions Medical Precautions fall risk, corset, hemovac, spinal precautions Pain Assessment Pain Assessment 0-10 Pain Score 7 Pain Type Surgical pain Pain Location Back Effect of Pain on Daily Activities Increased pain during transfers. Cognition Overall Cognitive Status WFL Arousal/Alertness Appropriate responses to stimuli Orientation Level Oriented X4 Following Commands Follows all commands and directions without difficulty Safety Judgment Good awareness of safety precautions Awareness of Errors Assistance required to identify errors made Cognition Comments Apprehensive during transfers including sit <-> stand and supine <-> sit as well as stair negotiation. Increased time and encouragement required. Static Sitting Balance Static Sitting-Balance Support Feet supported Static Sitting-Level of Assistance Independent Dynamic Sitting Balance Dynamic Sitting-Comments Limited by pain and spinal precautions Static Standing Balance Static Standing-Balance Support Right upper extremity supported;Left upper extremity supported;With device Static Standing-Level of Assistance Close supervision Static Standing-Comment/Number of Minutes SBA for safety due to recent h/o dizziness and nausea during mobility with RW. Dynamic Standing Balance Dynamic Standing-Balance Support Right upper extremity supported;Left upper extremity supported;With device Dynamic Standing Balance-Level of Assistance Contact guard Dynamic Standing-Comments SBA -> CGA to ensure safety during functional mobility with RW for support. No LOB requiring assist to correct. Ambulation 1 Comments/Distance (ft) 1 Pt ambulated ~60' x 2 with RW for support, close SBA for safety. Guarded gait with slow, steady pace. No LE instability noted, minimal increased in pain (7/10), no c/o dizziness or nausea. Stairs Stairs Yes Stairs Rails 1 Right;Left Assistance 1 Contact guard Comment/Number of Steps 1 Pt performed 6 step x 6 and 4 x 9 with CGA to ensure safety. Min cues for sequencing and technique. Bed Mobility 1 Bed Mobility Comments 1 Sit to supine performed with mod assist x 1 for LEs and proper positioning. Increased time and effort required. Pt requested to defer log roll technique due to increased pain and difficulty. Pt performed long sitting with raised HOB. Pt plans to sleep in recliner upon home discharge. Pt able to verbalize log roll technique supine <-> sit for proper technique when beginning to use bed. Transfer 1 Trials/Comments 1 Sit to stand performed with close SBA for safety due to increased time, effort, and pain. Min cues for safety and technique Transfers 2 Trials/Comments 2 Stand to sit performed with SBA for safety due to increased pain. Other Activity Other Activity 1 Pt returned to bed with call light in reach and family present. PT Assessment PT Assessment/OPTOMETRIST OWNER Summary Pt able to demonstrate improved activity tolerance and ambulation distance, as well as initiate stair negotiation. Pt remains limited by apprehension, pain at surgical site, and overall deconditioning. Continue to progress as tolerated. Prognosis Good Evaluation/Treatment Tolerance Patient limited by pain Medical Staff Made Aware Yes PT Education/Comments corset, safety during functional mobility, bed mobility, stair negotiation, energy conservation/ pacing, spinal precautions, potential progress Plan Level of assist 1 assist PT Discharge Recommendations Home;With assist;Outpatient PT Outcome Assessments 6 Clicks (Mobility) Help from another person turning from your back to your side while in a flat bed without using bedrails: A little Help from another person moving from lying on your back to sitti (more content not included)... 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 AVS updated. [facility] 05-08-2023 Note ---- Attestation signed by Cedric Alexis MD at 05/08/2023 9:33 AM I personally saw and examined the patient on the same date of service as resident/fellow Clara Trivedi. I discussed the findings and therapeutic plan with the resident/fellow Clara Trivedi. I agree with the documentation, except for any edits/updates below. Teaching Physician's Revisions: Cedric Alexis ---- Orthopaedic Surgery Orthopaedic Surgery Progress Note Date: 05/08/2023 Surgery: 05/06/2023 - L3-5 DECOMPRESSION, FUSION, SPINE, LUMBAR, EXCISION OF SYNOVIAL CYST (L) SUBJECTIVE: NAEON, pain controlled, denies CP/SOB. Patient had 70 ml of output in HV overnight. Patient is otherwise doing well. Patient did well mobilizing with PT yesterday but wants to completes stairs today. Patient otherwise denies any new complaints. OBJECTIVE BP 122/62 (BP Location: Left arm, Patient Position: Lying) Pulse 98 Temp 37.1 ???C (98.8 ???F) (Oral) Resp 14 Ht 1.676 m (5' 6 ) Wt 108 kg (237 lb 14 oz) SpO2 96% BMI 38.39 kg/m??? General: No acute distress, alert and cooperative with exam MSK: Ortho spine musculoskeletal examination: No instability No visible deformity Normal muscle tone and volume Dressing is clean, dry, and intact, HV has minimal output on examination Upper Extremities: Sensation: intact C5, C6, C7, C8, T1 Strength: Shoulder abduction 5/5 Biceps 5/5 Triceps 5/5 Wrist Flexion 5/5 Wrist Extension 5/5 Lumbricals 5/5 Reflexes 2+ Manuel: Negative Lower Extremities: Sensation: intact L3, L4, L5, S1 Strength: Hip flexion 5/5 Knee Flexion 5/5 Knee Extension 5/5 EHL 5/5 Plantarflexion 5/5 Dorsiflexion 5/5 Reflexes 2+ Straight Leg Raise: Negative Labs Lab Results Component Value Date WBC 14.29 (H) 05/07/2023 HGB 10.5 (L) 05/07/2023 HCT 33.2 (L) 05/07/2023 MCV 77.8 (L) 05/07/2023 PLT 351 05/07/2023 Lab Results Component Value Date CALCIUM 9.0 05/07/2023 NA 136 05/07/2023 K 4.1 05/07/2023 CO2 25 05/07/2023 CL 105 05/07/2023 BUN 11 05/07/2023 CREATININE 0.81 05/07/2023 Lab Results Component Value Date INR 1.01 04/27/2023 Imaging: XR lumbar spine 2 or 3 views Result Date: 05/07/2023 Satisfactory radiographic evaluation of the transpedicular spinal fusion hardware. Electronically signed: Pablo Arnold M.D.. No CT results found for the past 24 hours No MRI results found for the past 24 hours ASSESSMENT: Ann-Marie Brower is a 52 y.o. female with spondylolisthesis at L4-L5 now 2 Days Post-Op L3-5 DECOMPRESSION, FUSION, SPINE, LUMBAR, EXCISION OF SYNOVIAL CYST (L) PLAN -AAT, no heavy lifting, or deep bending -Remove Hemovac prior to discharge -Completed postop Abx -Continue Lovenox -Vitamin D supplementation -Pain control as prescribed -Complete stairs with PT today -Plan for discharge today to home with rolling walker, shower chair, and raised toilet seat. Clara Trivedi MD Orthopaedic Surgery, PGY-1 Ortho Pager [phone] 05/08/23 6:44 AM I am available via [employer] 6a-6p. May contact the on-call resident with any concerns via the Orthopaedic pager at any time. [facility] 05-07-2023 Note Physical Therapy Physical Therapy Evaluation Patient Name: Ann-Marie Brower : 1970 Today's Date: 05/07/2023 General Subjective: Patient resting in bedside chair, reports nausea. Postoperative Diagnosis: L 3-4 facet arthropathy spinal canal stenosis due to intraspinal extradural lesion; L 4-5 grade I spondylolisthesis with foramina stenosis performed 05/06/2023 Patient Active Problem List Diagnosis Asthma HTN (hypertension) Allergic rhinitis Spondylolisthesis at L4-L5 level Past Medical History: Diagnosis Date Allergic rhinitis Arthritis Asthma COVID Hypertension Intervertebral disc stenosis of neural canal of lumbar region Lumbar radiculopathy OA (osteoarthritis) Plantar fasciitis Pneumonia PONV (postoperative nausea and vomiting) Spondylolisthesis of lumbar region Spondylosis with myelopathy, lumbar region Past Surgical History: Procedure Laterality Date CHOLECYSTECTOMY TONSILLECTOMY Precautions Precautions Medical Precautions: corset, drain, IV, log roll, no bending lifting or twisting (due to drain did not attempt corset) Pain Pain Assessment Pain Assessment: 0-10 Pain Score: 6 Pain Location: Back Cognition Cognition Orientation Level: Oriented X4 General Assessment General Assessment Hand Dominance: Right Home Living Home Living Type of Home: House Lives With: Spouse, Son Home Living Comments: may sleep in recliner on first floor until able to complete full flight of stairs, took next week off work Home Layout: Two level, 1/2 bath on main level, Bed/bath upstairs, Stairs to alternate level with rails Home Access: Stairs to enter with rails Entrance Stairs-Number of Steps: 4-5 Bathroom Shower/Tub: Walk-in shower Prior Level of Function Prior Function Level of Vernon: Independent with ADLs and functional transfers Prior Functional Mobility: Independent without device (as back pain and L LE radiulopathy worsened before surgery was more difficult to walk but was not using device) Vocational: (does not work outside the home) Vision Basic Assessment Vision - Basic Assessment Current Vision: No visual deficits General Assessments Sensation Sensation Comments: no loss of sensation or changes per pt Coordination Movements are Fluid and Coordinated: Yes Static Sitting Balance Static Sitting-Level of Assistance: Independent Dynamic Sitting Balance Dynamic Sitting Balance-Level of Assistance: Independent Static Standing Balance Static Standing-Level of Assistance: Close supervision (with RW) Dynamic Standing Balance Dynamic Standing Balance-Level of Assistance: Contact guard (with RW) Functional Assessments Bed Mobility Bed Mobility: Yes Bed Mobility 1 Level of Assistance 1: Minimum assistance Bed Mobility Comments 1: assist for LE, cues for log roll technique Transfers Transfer: Yes Transfer 1 Transfer Level of Assistance 1: Contact guard Trials/Comments 1: for sit stand from chair, toilet, bed; due to nausea and lightheadedness, cues to prevent breath-holding Ambulation Ambulation: Yes Ambulation 1 Assistance 1: Contact guard Quality of Gait 1: slow pace, decrased step length Comments/Distance (ft) 1: 20, 15 Stairs Stairs: No Extremity Assessments RLE Assessment RLE Assessment: Within Functional Limits LLE Assessment LLE Assessment: Exceptions to WFL Strength LLE L Knee Extension: 4/5 (with back pain) L Ankle Dorsiflexion: 4+/5 Outcome Assessments 6 Clicks (Mobility) Help from another person turning from your back to your side while in a flat bed without using bedrails: A little Help from another person moving from lying on your back to sitting on the side of a flat bed without using bedrails: A little Help from another person moving to and from a bed to a chair (including a wheelchair): A little Help from another person standing up from a chair using your arms (e.g. wheelchair or bedside chair): A little Help from another person to walk in hospital room: A little Help from another person climbing 3-5 steps with a railing: A lot Mobility 6 Clicks T-Score: 17 Assessment/Plan PT Assessment Impairments: Decreased strength, Decreased range of motion, Decreased endurance, Decreased mobility, Pain, Orthopedic restrictions PT Assessment: Patient is post op day 1 lumbar fusion L3-5 with pain, L LE weakness, core weakness, decreased endurance, limited mobility limiting tolerance to bed mobility, transfers, ambulation and stairs. Activity tolerance was limited by nausea and emesis, back pain, and fatigue. Prognosis: Good Medical Staff Made Aware: (patient received medication for nausea during session) PT Education/Comments: reviewed log roll technique and education to prevent breath-holding with transfers = exhale with effort Plan Level of assist: 1 assist Treatment/Interventions: LE strengtheni (more content not included)... [facility] 05-07-2023 Note Occupational Therapy Occupational Therapy Evaluation Patient Name: Ann-Marie Brower : 1970 Today's Date: 05/07/2023 Time In: 846 Time Out: 919 05/06/23 Preoperative Diagnosis: L 3-4 facet arthropathy spinal canal stenosis due to intraspinal extradural lesion (ICD-10 M99.53, M54.16). L 4-5 grade I spondylolisthesis with foramina stenosis (ICD-10 M43.16, M99.53, M54.16). Postoperative Diagnosis: L 3-4 facet arthropathy spinal canal stenosis due to intraspinal extradural lesion (ICD-10 M99.53, M54.16). L 4-5 grade I spondylolisthesis with foramina stenosis (ICD-10 M43.16, M99.53, M54.16). OPERATION: 1. L 3-4 posterior lumbar spine decompression, excision of intraspinal extradural lesion (65167, 93772). 2. L 3-5 posterolateral fusion using autograft, crushed cancellous allograft and [employer] ([id number]). 3. L 3-5 instrumentation using Expedium system from [employer] (36419). 4. Local bone autograft harvesting and use of crush cancellous allograft (70159, 82213). 5. Use of intraoperative fluoroscopy (38545). General Subjective: friendly and cooperative Patient Active Problem List Diagnosis Asthma HTN (hypertension) Allergic rhinitis Spondylolisthesis at L4-L5 level Past Medical History: Diagnosis Date Allergic rhinitis Arthritis Asthma COVID Hypertension Intervertebral disc stenosis of neural canal of lumbar region Lumbar radiculopathy OA (osteoarthritis) Plantar fasciitis Pneumonia PONV (postoperative nausea and vomiting) Spondylolisthesis of lumbar region Spondylosis with myelopathy, lumbar region Past Surgical History: Procedure Laterality Date CHOLECYSTECTOMY TONSILLECTOMY Precautions Precautions Medical Precautions: drain, fall risk, no bending lifting or twisting (corset for comfort) Pain Pain Assessment Pain Score: 8 (lbp , nsg aware) Cognition Cognition Overall Cognitive Status: Within Functional Limits General Assessment General Assessment Hearing: (wfl) Hand Dominance: Right Home Living Home Living Type of Home: House Home Adaptive Equipment: (GB toilet) Home Layout: Two level, 1/2 bath on main level, Bed/bath upstairs (may sleep in recliner on first floor) Home Access: Stairs to enter with rails (3) Bathroom Shower/Tub: Walk-in shower Prior Level of Function Prior Function Level of Vernon: Independent with ADLs and functional transfers, Independent with homemaking with ambulation (drives) Prior IADLs IADL History Homemaking Responsibilities: Yes Dynamic Sitting Balance Dynamic Sitting Balance Dynamic Sitting Balance-Level of Assistance: Independent Static Standing Balance Static Standing Balance Static Standing-Level of Assistance: Close supervision (RW) ADL ADL UE Dressing Assistance: Independent LE Dressing Assistance: Minimal Toileting Assistance with Device: Minimal Transfers Transfers Transfer: (SBA supine to sit/log roll, SBA with RW :: sit to stand , 12 feet to toilet , sit / stand, 20 feet to chair , sit into chair) Objective General Assessments Activity Tolerance Endurance: Stage II Vision - Basic Assessment Current Vision: No visual deficits Sensation Light Touch: No apparent deficits (BUE) Proprioception Proprioception: No apparent deficits Coordination Movements are Fluid and Coordinated: Yes Extremity Assessments RUE Assessment RUE Assessment: (reports no issues / MMT deferred) Outcome Assessments AM-PAC 6 Clicks Putting on and taking off regular lower body clothing?: A Little (Min Assist/Contact Guard/Supervision) Bathing(Including washing,rinsing,drying)?: A Little (Min Assist/Contact Guard/Supervision) Toileting, which includes using the toilet,bedpan,or urinal?: A Little (Min Assist/Contact Guard/Supervision) Putting on and taking off regular upper body clothing?: None (Independent) Taking care of personal grooming such as brushing teeth?: None (Independent) Eating meals?: None (Independent) Total Score OT AMPAC: 21 Assessment/Plan OT Assessment OT Impairments: Decreased ADL status, Decreased endurance, Decreased functional mobility OT Assessment/COLORECTAL SURGEON Summary: (needs skilled OT due to weakness and fatigue) Prognosis: Good Evaluation/Treatment Tolerance: Patient limited by fatigue, Patient limited by pain Medical Staff Made Aware: Yes OT Education/Comments: (log roll/ precautions / pain mgt techniques, adl safety/technique, ae/dme needs., all with good verbal return) Plan Level of assist: 1 assist Treatment Interventions: ADL retraining, Functional transfer training, Endurance training, Patient/family training, Neuromuscular reeducation, Compensatory technique education OT Plan: Skilled OT OT Frequency: 5 times per week until discharge & PRN OT Discharge Recommendations: Home Equipment Recommended: (3-1 commode, gb shower, [facility]) OT - Discharge Recommendati (more content not included)... [facility] 05-07-2023 Note ---- Attestation signed by Cedric Alexis MD at 05/07/2023 3:22 PM I personally saw and examined the patient on the same date of service as resident/fellow Clara Trivedi. I discussed the findings and therapeutic plan with the resident/fellow Clara Trivedi. I agree with the documentation, except for any edits/updates below. Teaching Physician's Revisions: mobilize as tolerated c ---- Orthopaedic Surgery Orthopaedic Surgery Progress Note Date: 05/07/2023 Surgery: 05/06/2023 - L3-5 DECOMPRESSION, FUSION, SPINE, LUMBAR, EXCISION OF SYNOVIAL CYST (L) SUBJECTIVE: NAEON, pain controlled, denies CP/SOB. Patient had 150 ml of output in HV overnight. Patient is otherwise doing well and is eager to mobilize with PT today. Patient otherwise denies any new complaints OBJECTIVE BP 125/76 (BP Location: Left arm, Patient Position: Lying) Pulse 77 Temp 36.2 ???C (97.2 ???F) (Tympanic) Resp 16 Ht 1.676 m (5' 6 ) Wt 108 kg (237 lb 14 oz) SpO2 99% BMI 38.39 kg/m??? General: No acute distress, alert and cooperative with exam MSK: Ortho spine musculoskeletal examination: No instability No visible deformity Normal muscle tone and volume Dressing is clean, dry, and intact, HV has minimal output on examination Upper Extremities: Sensation: intact C5, C6, C7, C8, T1 Strength: Shoulder abduction 5/5 Biceps 5/5 Triceps 5/5 Wrist Flexion 5/5 Wrist Extension 5/5 Lumbricals 5/5 Reflexes 2+ Manuel: Negative Lower Extremities: Sensation: intact L3, L4, L5, S1 Strength: Hip flexion 5/5 Knee Flexion 5/5 Knee Extension 5/5 EHL 5/5 Plantarflexion 5/5 Dorsiflexion 5/5 Reflexes 2+ Straight Leg Raise: Negative Labs Lab Results Component Value Date WBC 14.29 (H) 05/07/2023 HGB 10.5 (L) 05/07/2023 HCT 33.2 (L) 05/07/2023 MCV 77.8 (L) 05/07/2023 PLT 351 05/07/2023 Lab Results Component Value Date CALCIUM 10.7 (H) 04/27/2023 NA 138 04/27/2023 K 3.9 04/27/2023 CO2 25 04/27/2023 CL 104 04/27/2023 BUN 12 04/27/2023 CREATININE 0.87 04/27/2023 Lab Results Component Value Date INR 1.01 04/27/2023 Imaging: No X-ray results found for the past [address] results found for the past 24 hours No MRI results found for the past 24 hours ASSESSMENT: Ann-Marie Brower is a 52 y.o. female with spondylolisthesis at L4-L5 now 1 Day Post-Op L3-5 DECOMPRESSION, FUSION, SPINE, LUMBAR, EXCISION OF SYNOVIAL CYST (L) PLAN -AAT, no heavy lifting, or deep bending -Continue to monitor HV output -Complete 24 hours of postop Ancef -Continue Lovenox -Vitamin D supplementation -Pain control as prescribed -Work with physical therapy today -Plan for discharge 05/08 to home pending physical therapy Johanna Trivedi MD Orthopaedic Surgery, PGY-1 Ortho Pager [phone] 05/07/23 7:35 AM I am available via [employer] 6a-6p. May contact the on-call resident with any concerns via the Orthopaedic pager at any time. [facility] 05-06-2023 Note Patient: Ann-Marie Brower Procedure Summary Date: 05/06/23 Room / Location: [facility] OPERATING ROOM / [facility] Operating Room Anesthesia Start: 1028 Anesthesia Stop: 1347 Procedures: L3-5 DECOMPRESSION (Spine Lumbar) FUSION, SPINE, LUMBAR, EXCISION OF SYNOVIAL CYST (Left: Spine Lumbar) Diagnosis: Spondylolisthesis of lumbar region Intervertebral disc stenosis of neural canal of lumbar region Lumbar radiculopathy Spondylosis with myelopathy, lumbar region (M43.16) (M99.53) (M54.16) (M47.16) Surgeons: Cedric Alexis MD Responsible Provider: Glo Michaud MD Anesthesia Type: general ASA Status: 2 Anesthesia Type: general Vitals Value Taken Time BP 105/69 05/06/23 1539 Temp 36.6 ???C (97.9 ???F) 05/06/23 1343 Pulse 79 05/06/23 1608 Resp 14 05/06/23 1608 SpO2 99 % 05/06/23 1608 Vitals shown include unvalidated device data. Anesthesia Post Evaluation Patient location during evaluation: PACU Patient participation: complete - patient participated Level of consciousness: awake and alert Pain score: 5 Pain management: adequate Airway patency: patent Cardiovascular status: acceptable Respiratory status: acceptable Hydration status: acceptable Patient is hemodynamically stable and is able to be discharged from PACU per anesthesia protocol. No notable events documented. [facility] 05-06-2023 Note Patient: Ann-Marie Brower Procedure Summary Date: 05/06/23 Room / Location: [facility] OPERATING [facility]OM / [facility] Operating Room Anesthesia Start: 1028 Anesthesia Stop: 1347 Procedures: L3-5 DECOMPRESSION (Spine Lumbar) FUSION, SPINE, LUMBAR, EXCISION OF SYNOVIAL CYST (Left: Spine Lumbar) Diagnosis: Spondylolisthesis of lumbar region Intervertebral disc stenosis of neural canal of lumbar region Lumbar radiculopathy Spondylosis with myelopathy, lumbar region (M43.16) (M99.53) (M54.16) (M47.16) Surgeons: Cedric Alexis MD Responsible Provider: Glo Michaud MD Anesthesia Type: general ASA Status: 2 Anesthesia Post Transport Note Transport to: PACU O2 Route: room air Patient Monitor: direct observation Transport: uneventful Patient condition is: stable [facility] 05-06-2023 Note Peripheral IV Date/Time: 05/06/2023 10:45 AM Inserted by: Jean Claude Snyder MD Placement Needle size: 18 G Laterality: left Location: hand Local anesthetic: none Site prep: alcohol Technique: anatomical landmarks Attempts: 1 [facility] 05-06-2023 Note Airway Date/Time: 05/06/2023 10:38 AM Urgency: elective General Information and Staff Patient location during procedure: OR Anesthesiologist: Glo Michaud MD Resident/OPERATOR LIGHTS/CAA: Jean Claude Snyder MD Performed: resident/OPERATOR LIGHTS/CAA Indications and Patient Condition Indications for airway management: anesthesia Spontaneous Ventilation: absent Sedation level: deep Preoxygenated: yes Patient position: sniffing Mask difficulty assessment: 1 - vent by mask Final Airway Details Final airway type: endotracheal airway Successful airway: ETT Cuffed: yes Successful intubation technique: video laryngoscopy Facilitating devices/methods: intubating stylet Endotracheal tube insertion site: oral Blade: Diego Blade size: #3 ETT size (mm): 7.5 Cormack-Lehane Classification: grade I - full view of glottis Placement verified by: chest auscultation and capnometry Measured from: lips ETT to lips (cm): 22 Number of attempts at approach: 1 Number of other approaches attempted: 0 Additional Comments Two hand mask required, inserted oral airway for masking [facility] 05-06-2023 Note Patient: Ann-Marie Brower Procedure Information Date/Time: 05/06/23 1030 Procedures: L3-5 DECOMPRESSION (Spine Lumbar) FUSION, SPINE, LUMBAR, EXCISION OF SYNOVIAL CYST (Left: Spine Lumbar) - C-ARM, ESTEBAN TABLE, SSEP# [id number], SYNTHES NOTIFIED 04/27 MARTINA REQUESTS ORTHO MICROSCOPE *OBSERVATION STATUS* Location: [facility] OPERATING ROOM 12 / [facility] Operating Room Surgeons: Cedric Alexis MD Relevant Problems Cardio tolerates >4 METs without chest pain, SOB (+) HTN (hypertension) Pulmonary (+) Asthma (patient uses daily inhaler. Used inhaler Advair Diskus morning of surgery) Clinical information reviewed: Tobacco Allergies Meds Med Hx Surg Hx OB Status Fam Hx Soc Hx Physical Exam Airway Mallampati: III TM distance: >3 FB Neck ROM: full Cardiovascular - normal exam Dental - normal exam (+) implants Pulmonary - normal exam Abdominal (+) obese Anesthesia Plan ASA 2 general (Prone position. Maintain inhaled anesthetic at less than 1 MAC for SSEP/MEP monitoring) The patient is not a current smoker. Patient did not smoke on day of procedure. intravenous induction Anesthetic plan and risks discussed with patient. Use of blood products discussed with patient who consented to blood products. Plan discussed with attending, resident and CAA. Additional Equipment Requests [facility] 04-27-2023 Note Orthopedic Outpatien t Visit Visit Description: new patient Chief Complaint: low back pain HPI 04/27/23 Patient is a 52-year-old female that returns to clinic today for preoperative visit. At this current time patient's surgery is only partially improved and is being resubmitted as an appeal. Patient continues to have significant pain in her back that is radiating down the left side of her leg. She states that her foot and ankle feels numb nearly all the time and that her pain appears to be getting worse. She states it is affecting her daily life and she is having difficulties late in the day with doing normal daily activities including cooking and taking care of herself. 04/06/23 Patient is a 52-year-old female with a past medical history of asthma the presents to our clinic for evaluation of low back pain that started around [place] last year 2021. Patient states that she had insidious onset back pain that progressively got worse. Patient had seen her primary care physician who sent her for physical therapy. Physical therapy was performed for 8 weeks however worsened her symptoms.Patient has recently gotten an MRI from her primary care physician was referred here for further evaluation. Patient states her pain is located in the low back and started to affect her daily activities. Her pain is worsened with standing and walking prolonged distances. Pain is relieved with sitting down. She does have occasional radicular symptoms down her left leg over the front side of her leg and down to her ankle and foot region. Patient takes [id number] anti-inflammatories for pain however she does not like taking anti-inflammatories on a regular basis. Patient does not have any gait disturbances, fine hand dexterity problems. She has not had any previous corticosteroid injections for her pain. ROS Constitutional: Fatigue: No Weight loss: No Fever: No Chills: No Musculoskeletal: Neck Stiffness: No Neck Pain: No Back Stiffness: No Back Pain: No Neurologic: Headache: No Weakness: No Numbness: No Paresthesia: No Tremor: No Physical Exam Musculoskeletal Ortho spine musculoskeletal examination: Alignment spine: normal Tenderness: paraspinal Range of motion Cervical spine: normal Range of motion lumbar spine: limited Spurling Test: negative Neurological Left Side Biceps strength: 5 Wrist extension: 5 Triceps strength: 5 Finger flexors: 5 Finger abduction strength: 5 Flexion at the hip strength: 4 worse from previous exam Quadriceps strength: 4 worse on previous exam Tibialis anterior strength: 4 worse from previous exam Plantar flexion strength: 5 Extensor Hallicis Longus strength: 5 Sensory Exam: intact Straight leg raising: painful DTR/ Pathologic reflexes Biceps reflex- 2 Brachioradialis reflex- 2 Triceps reflex- 2 Patellar reflex- 2 Achilles reflex- 2 Babinski- negative Manuel reflex: Absent Right Side Biceps strength: 5 Wrist extension: 5 Triceps strength: 5 Finger flexor: 5 Finger abduction strength: 5 Flexion at the hip strength: 5 Quadriceps strength: 5 Tibialis anterior strength: 5 Plantar flexion strength: 5 Extensor Hallicis Longus strength: 5 Sensory Exam: intact Straight leg raising: negative DTR/ Pathologic reflexes Biceps reflex- 2 Brachioradialis reflex- 2 Triceps reflex- 2 Patellar reflex- 2 Achilles reflex- 2 Babinski- negative Manuel reflex: Absent Gait and station Gait and station: normal Tandem gait: normal Romberg test: normal Images: X-ray of patient's lumbar spine was performed with flexion-extension films. X-rays reviewed by myself and Dr. Alexis which demonstrated patient to have evidence of facet arthropathy of L3/4 and L4/5 and L5/S1. There is evidence of patient having grade 2 anterolisthesis of L4 on 5. MRI of patient's lumbar spine was performed which demonstrated patient to have evidence of L3-5 left-sided facet cyst within the spinal canal compressing the patient's spinal cord and displacing it to the contralateral side. Patient does have central canal stenosis at the L4-5 level. Assessment and Plan Patient is a 52-year-old female with L3-4 facet arthropathy, intraspinal extradural synovial cyst, and spinal canal stenosis , L 4-5 grade II spondylolisthesis with foramina stenosis and radiculopathy Explained the clinical and radiological findings with the patient and discussed management options. Discussed with the patient surgical and nonsurgical treatment options regarding her spondylolisthesis and facet cyst in her lumbar spine. Risk benefits were also discussed including Surgical Risk Reviewed with the patient: Lumbar Spine Surgery: The patient was counseled on thoracic/lumbar spine surgical risks including but not limited to intra-operative complication from anesthesia, including , dural tear, temporary or permanent paralysis, malposition of (more content not included)... [facility] 04-06-2023 Note Orthopedic Outpatien t Visit Visit Description: new patient Chief Complaint: low back pain HPI Patient is a 52-year-old female with a past medical history of asthma the presents to our clinic for evaluation of low back pain that started around [place] last year 2021. Patient states that she had insidious onset back pain that progressively got worse. Patient had seen her primary care physician who sent her for physical therapy. Physical therapy was performed for 8 weeks however worsened her symptoms.Patient has recently gotten an MRI from her primary care physician was referred here for further evaluation. Patient states her pain is located in the low back and started to affect her daily activities. Her pain is worsened with standing and walking prolonged distances. Pain is relieved with sitting down. She does have occasional radicular symptoms down her left leg over the front side of her leg and down to her ankle and foot region. Patient takes [id number] anti-inflammatories for pain however she does not like taking anti-inflammatories on a regular basis. Patient does not have any gait disturbances, fine hand dexterity problems. She has not had any previous corticosteroid injections for her pain. ROS Constitutional: Fatigue: No Weight loss: No Fever: No Chills: No Musculoskeletal: Neck Stiffness: No Neck Pain: No Back Stiffness: No Back Pain: No Neurologic: Headache: No Weakness: No Numbness: No Paresthesia: No Tremor: No Physical Exam Musculoskeletal Ortho spine musculoskeletal examination: Alignment spine: normal Tenderness: paraspinal Range of motion Cervical spine: normal Range of motion lumbar spine: limited Spurling Test: negative Neurological Left Side Biceps strength: 5 Wrist extension: 5 Triceps strength: 5 Finger flexors: 5 Finger abduction strength: 5 Flexion at the hip strength: 5 Quadriceps strength: 4+, limited by pain Tibialis anterior strength: 5 Plantar flexion strength: 5 Extensor Hallicis Longus strength: 5 Sensory Exam: intact Straight leg raising: painful DTR/ Pathologic reflexes Biceps reflex- 2 Brachioradialis reflex- 2 Triceps reflex- 2 Patellar reflex- 2 Achilles reflex- 2 Babinski- negative Manuel reflex: Absent Right Side Biceps strength: 5 Wrist extension: 5 Triceps strength: 5 Finger flexor: 5 Finger abduction strength: 5 Flexion at the hip strength: 5 Quadriceps strength: 5 Tibialis anterior strength: 5 Plantar flexion strength: 5 Extensor Hallicis Longus strength: 5 Sensory Exam: intact Straight leg raising: negative DTR/ Pathologic reflexes Biceps reflex- 2 Brachioradialis reflex- 2 Triceps reflex- 2 Patellar reflex- 2 Achilles reflex- 2 Babinski- negative Manuel reflex: Absent Gait and station Gait and station: normal Tandem gait: normal Romberg test: normal Images: X-ray of patient's lumbar spine was performed with flexion-extension films. X-rays reviewed by myself and Dr. Alexis which demonstrated patient to have evidence of facet arthropathy of L3/4 and L4/5 and L5/S1. There is evidence of patient having grade 2 anterolisthesis of L4 on 5. MRI of patient's lumbar spine was performed which demonstrated patient to have evidence of L3-5 left-sided facet cyst within the spinal canal compressing the patient's spinal cord and displacing it to the contralateral side. Patient does have central canal stenosis at the L4-5 level. 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 Discussed with the patient surgical and nonsurgical treatment options regarding her spondylolisthesis and facet cyst in her lumbar spine. Risk benefits were also discussed. After thorough discussion patient states that she would not not like to pursue epidural injections at this time. She does believe that she would benefit from surgery and that she cannot continue to live with the pain as it has had a significant affecting her ADLs. We will tentatively plan to perform a L3-5 lumbar decompression and fusion for the above described diagnosis. We would like to obtain a preoperative CT scan for planning. We will send the patient to her primary care physician to start preoperative clearance. Patient to follow-up after his CT and clearance. Patient states that she would like to have surgery for the end of the year if possible. Patient and her who is present for evaluation are in agreement above treatment plan. All questions were answered. Patient had conservative management including physical therapy which did not give sustained relief. Due to severity of the patient symptoms affecting daily activities and quality (more content not included)... [facility] Summary Purpose Family History No Family History Records FoundNo Family History Records Found Advance Directives No Advanced Directives Records FoundNo Advanced Directives Records Found Additional Source Comments INFORMATION SOURCE (unrecogn ized section and content) DATE CREATED AUTHOR 10/29/2022 [facility] DATE CREATED AUTHOR AUTHOR'S ORGANIZ ATION 08/04/2023 [facility] FOR RECORDS PERTAINING TO PATIENTS WHO ARE OR HAVE BEEN ENROLLED IN A CHEMICAL DEPENDENCY/SUBSTANCEABUSE PROGRAM, SOME INFORMATION MAY BE OMITTED. This clinical summary was aggregated from multiple sources. Caution should be exercised in using it in the provision of clinical care. This summary normalizes information from multiple sources, and as a consequence, information in this document may materially change the coding, format and clinical context of patient data. In addition, data may be omitted in some cases. CLINICAL DECISIONS SHOULD BE BASED ON THE PRIMARY CLINICAL RECORDS. [employer] provides no warranty or guarantee of the accuracy or completeness of information in this document.
--- NOTE | 2023-08-05 07:51 | MM_ITS ---
Patient Name: JASON CASTRO MR#: [id number] : 1970 Exam Date: 08/05/2023 Ordering Doctor: DR Basil Egan . RADIOLOGY REPORT PROCEDURE: MM TOMOSYNTHESIS SCREENING BI COMPARISON: [facility] MAMM SCREEN 3D CHARLIE CAD, 05/07/2022. [facility] MAMM SCREEN 3D CHARLIE CAD, 03/24/2021. MG MAMM SCREEN CHARLIE W CAD, 03/20/2020. MG MAMM CHARLIE SCRN W CAD DIG, 02/26/2014. INDICATIONS: Screening Calculator Name NCI Breast Cancer Risk Assessment Tool 5 Year Breast Cancer Risk 1.30% Lifetime Breast Cancer Risk 10.80% Personal Breast Cancer No Personal Ovarian Cancer No Treatments None Family Cancers Cousin-maternal with breast cancer at age ~41. LOCATION: [facility] BREAST COMPOSITION: Scattered areas fibroglandular density. FINDINGS: DIAGNOSTIC CATEGORY 2--BENIGN FINDING: RIGHT BREAST: No significant suspicious finding. Scattered benign-appearing nodules are present. No significant change has occurred. LEFT BREAST: No significant suspicious finding. Scattered benign-appearing nodules are present. No significant change has occurred. RECOMMENDATIONS: ROUTINE MAMMOGRAM AND CLINICAL EVALUATION IN 12 MONTHS. PLEASE NOTE: A NORMAL MAMMOGRAM DOES NOT EXCLUDE THE POSSIBILITY OF BREAST CANCER. A CLINICALLY SUSPICIOUS PALPABLE LUMP SHOULD BE BIOPSIED. Dictated by: Alfa Freire M.D. on 08/05/2023 at 15:11 Approved by: Alfa Freire M.D. on 08/05/2023 at 15:14
== END 2023-08-05 07:47 | disposition home or self-care (01) ==
LOC: MAMMO 07:46
PROVIDERS: PCP Family Medicine; Visit Provider Family Medicine
DX: Z12.31 Encounter for screening mammogram for malignant neoplasm of breast (principal); Z80.3 Family history of malignant neoplasm of breast
CPT/HCPCS: 77063; 77067

== ENCOUNTER 2024-10-09 10:31 | Outpatient (OUT) | payer OTHER, SELFPAY ==
--- OUTSIDE RECORDS SUMMARY | 2024-10-09 10:36 | XMS_ITS | CCD ---
Author Organization [facility] Care Team Providers Care Disability Coordinator Name Role Phone RADHA PERKINS Admitting Unavailable GREGORIO, RADHA Primary Care Unavailable GREGORIO, RADHA Consulting Unavailable GREGORIO, RADHA Attending Unavailable HOY ., DR CIFUENTES Admitting Unavailable HOY ., DR CIFUENTES Primary Care Unavailable HOY ., DR CIFUENTES Consulting Unavailable HOY ., DR CIFUENTES Attending Unavailable WEST, DR CARROL Bautista Consulting Unavailable HOY ., DR CIFUENTES Admitting Unavailable HOY ., DR CIFUENTES Primary Care Unavailable HOY ., DR CIFUENTES Consulting Unavailable HOY ., DR CIFUENTES Attending Unavailable HOY ., DR CIFUENTES Admitting Unavailable HOY ., DR CIFUENTES Primary Care Unavailable HOY ., DR CIFUENTES Attending Unavailable ELGAFY, CEDRIC Attending Unavailable ELGAFY, CEDRIC Attending Unavailable ELGAFY, CEDRIC Attending Unavailable ELGAFY, CEDRIC Attending Unavailable Problems Active Problems Problem Classification Problem Date Documented Da te Episodic/Chronic Other acquired deformities (2 sources) Spondylolisthesis, lumbar region; Translations: [Spondylolisthesis, lumbar region] Onset: 05-06-2023 Episodic Other connective tissue disease (2 sources) Other bursal cyst, other site; Translations: [Other bursal cyst, other site] Onset: 05-17-2024 Episodic Spondylosis; intervertebral disc disorders; other back problems (2 sources) Spondylosis without myelopathy or radiculopathy, lumbar region; Translations: [Spondylosis without myelopathy or radiculopathy, lumbar region] Onset: 02-16-2024 Chronic Unclassified (3 sources) COUGH, UNSPECIFIED; Translations: [COUGH, UNSPECIFIED] Onset: 05-12-2022 Unclassified (1 source) CONTACT W/AND (SUSP) EXPOS COVID-19; Translations: [CONTACT W/AND (SUSP) EXPOS COVID-19] Onset: 05-12-2022 Unclassified (2 sources) Post-op; Translations: [Post-op] Onset: 08-03-2023 Viral infection (4 sources) COVID-19; Translations: [COVID-19] [...] MALIG NEOPLASM OF BREAST] Onset: 05-12-2022 Episodic Spondylosis; intervertebral disc disorders; other back problems (6 sources) Sciatica, unspecified side; Translations: [Radiculopathy, lumbar region] Onset: 07-23-2022 Episodic Unclassified (1 source) COUGH, UNSPECIFIED; Translations: [COUGH, UNSPECIFIED] Onset: 05-10-2022 Results Test Name Value Interpretation Reference Range Facil ity Follow-Upon 05-17-2024 Follow-Up [id number] Ann-Marie Brower 1970 F Date Provider Department Center 05/17/2024 CEDRIC POON [facility] No family history on file Level of Service:52850 [place] OFFICE/OUTPATIENT ESTABLISHED LOW MDM 20 MIN [facility] 36on 04-04-2024 36 Left message for patient that appointment on 05/03 was rescheduled d/t out of town [facility] Follow-Upon 02-16-2024 Follow-Up [id number] Ann-Marie Brower 1970 F Date Provider Department Center 02/16/2024 CEDRIC POON [facility] No family history on file Level of Service:66532 [place] OFFICE/OUTPATIENT ESTABLISHED SF MDM 10 MIN [facility] 36on 08-18-2023 36 Sent 2 days ago [facility] 08-16-2023 Refill [id number] Ann-Marie Brower 1970 Date Provider Department Center 08/16/2023 CEDRIC POON [facility] No family history on file Reason for Visit and Comments: Med Refill [[id number]] [facility] Office Visiton 08-03-2023 Follow-up visit [id number] Ann-Marie Brower Ian 1970 Date Provider Department Center 08/03/2023 CEDRIC POON [facility] No family history on file Level of Service:89914 [place] POSTOP FOLLOW UP VISIT RELATED TO ORIGINAL PX (GC) Reason for Visit and Comments: Post-op [483] [facility] 07-13-2023 Refill [id number] Ann-Marie Brower Ian 1970 Date Provider Department Center 07/13/2023 [id number] GARCÍA [facility] No family history on file Reason for Visit and Comments: Med Refill [[id number]] [facility] Office Visiton 06-22-2023 Follow-up visit [id number] InocenteAnn-Marie Sosa 1970 Provider Department [place] 06/22/2023 CEDRIC POON [facility] No family history on file Level of Service:40657 [place] POSTOP FOLLOW UP VISIT RELATED TO ORIGINAL PX (GC) Reason for Visit and Comments: Pain [136] Post-op [483] [facility] 36on 05-30-2023 36 called in stating that they need to change her PO appointment. Also asked if they can have a refill on her pain medication. Appointment was changed to 06/22 and prescription was sent to Dr. Alexis to be signed. [facility] 05-30-2023 Refill [id number] Jude Browerjesus Sosa 1970 F Date Provider Department Center 05/30/2023 CEDRIC POON [facility] No family history on file [facility] Covid-19 PCR (CVDTB)on 04-22 SARS-CoV-2 (COVID-19) RNA CHERYL+probe Ql (Unsp spec) Not detected Normal NOT DETECTED [facility] Comment on above: Result Comment: This test is not yet approved or cleared by the [place] FDA. When there are no FDA-approved or cleared tests available, and other criteria are met, FDA can make tests available under an emergency access mechanism called an Emergency Use Authorization (EUA). The EUA for this test is supported by the [place] of Health and Human Service's (HHS's) declaration [...] consistent with SARS-CoV-2. Performed By: #### C VDTBH #### [facility] [address] [place] [address] Dr. Micheal Fuentes INFLUENZA A AND B AGon 05-10 [facility] SEE BELOW Normal [facility] Comment on above: Result Comment: Nega tive for Flu A protein angiten. Infection due to Flu A cannot be ruled out. Flu A angiten in the sample may be below the detection limit of the test. Performed By: #### I NFLUAB #### [facility] [address] [place] [address] Dr. [facility] Normal [facility] Comment on above: Result Comment: Nega tive for Flu B protein antigen. Infection due to Flu B cannot be ruled out. Flu B antigen in the sample may be below the detection limit of the test. Performed By: #### I NFLUAB #### [facility] [address] [place] [address] Dr. Micheal Fuentes INFLUENZA A AG Negative Normal NEGATIVE SEE COMMENT [facility] Comment on above: Performed By: #### I NFLUAB #### [facility] [address] [address] [address] Micheal Fuentes INFLUENZA B AG Negative Normal NEGATIVE SEE COMMENT [facility] Comment on above: Performed By: #### I NFLUAB #### [facility] [address] [place], [place] [address] Dr. Micheal Fuentes INTERNAL CONTROLS Within Normal Limits Normal Wi thin Normal Limits [facility] Comment on above: Performed By: #### I NFLUAB #### [facility] [address] [place], [place] [address] Dr. Micheal Fuentes MG MAMM SCREEN 3D CHARLIE CADon 05-07-2022 MG MAMM SCREEN 3D CHARLIE CAD Patient: ANN-MARIE BROWER Exam Date: 05/07/2022 : 1970 Gender:F Ordering : DR VANE ADORNO . Admission #: [id number] Family : Order #: [id number] CLICK HERE TO VIEW EXAM RADIOLOGY REPORT [...] breast cancer at age 41. LOCATION: [facility] BREAST COMPOSITION: Scattered areas fibroglandular density. FINDINGS: [...] Woo MD on 05/07/2022 at 09:02 Normal [facility] Encounters Encounter Date Encounter Type Care Provider Facility Start: 05-17-2024 ambulatory [facility] Start: 02-16-2024 ambulatory [facility] Start: 08-03-2023 End: 08-03-2023 ambulatory [facility] Start: 06-22-2023 ambulatory [facility] Start: 07-23-[address] VANE ADORNO . Facili ty: Start: 05-10-2022 End: 05-10-[address] VANE ADORNO . Facility: Start: 05-07-2022 End: 05-08-[address] VANE ADORNO . Facility: Start: 11-30-2021 End: 11-30-2021 ambulatory RADHA PERKINS Facility: Payers Date Payer Category Payer Unknown [id number] 1970 Unknown [id number] 2.16.84 [id number] 1970 Unknown [id number] [id number] [id number] 1970 Unknown [id number] [id number] [id number] 1970 Unknown [id number] [id number] [id number] Progress note 05-17-2024 Note Date & Type Note Facility 05-17-2024 Note Chief Complaint: low back pain HPI When did this problem begin: Long time Timing/frequency of occurrence: Constant Pain description: dull ache Pain severity: 3 Radicular pain: improved Numbness/tingling: No Pain is getting: gradually improving Weakness: No What improves symptoms: Rest What makes symptoms worse: Activity Gait disturbance: No Fine hand dexterity problem: No Previous treatment for this problem: L3-5 decompression nad fusion 04/2023 ROS Constitutional: Fatigue: No Weight loss: No Fever: No Chills: No Past Surgical History: Procedure Laterality Date CHOLECYSTECTOMY TONSILLECTOMY Past Medical History: Diagnosis Date Allergic rhinitis Arthritis Asthma COVID Hypertension Intervertebral disc stenosis of neural canal of lumbar region Lumbar radiculopathy OA (osteoarthritis) Plantar fasciitis Pneumonia PONV (postoperative nausea and vomiting) Spondylolisthesis of lumbar region Spondylosis with myelopathy, lumbar region Past Surgical History: Procedure Laterality Date CHOLECYSTECTOMY TONSILLECTOMY No Known Allergies Current Outpatient Medications: acetaminophen (Tylenol) 500 mg tablet, Take 2 tablets (1,000 mg) by mouth every 6 (six) hours if needed for mild pain (1-3 pain score)., Disp: 60 tablet, Rfl: 1 albuterol 90 mcg/actuation inhaler, INHALE 1 TO 2 PUFFS FOUR TIMES A DAY NEEDED, Disp: , Rfl: cetirizine (ZyrTEC) 10 mg tablet, Take 10 mg by mouth at bedtime., Disp: , Rfl: cyclobenzaprine (Flexeril) 10 mg tablet, Take 1 tablet (10 mg) by mouth if needed in the morning, at noon, and at bedtime for muscle spasms., Disp: 30 tablet, Rfl: 0 ergocalciferol (Vitamin D2) 1.25 MG (20515 Units) capsule, TAKE 1 CAPSULE (50,000 UNITS) BY MOUTH 1 (ONE) TIME PER WEEK FOR 12 DOSES., Disp: 12 capsule, Rfl: 0 fluticasone propion-salmeteroL (Advair Diskus) 250-50 mcg/dose diskus inhaler, Inhale 1 puff in the morning and at bedtime. Rinse mouth with water after use to reduce aftertaste and incidence of candidiasis. Do not swallow., Disp: , Rfl: lisinopril 20 mg tablet, Take 20 mg by mouth at bedtime., Disp: , Rfl: montelukast (Singulair) 10 mg tablet, Take 10 mg by mouth at bedtime., Disp: , Rfl: Social History Socioeconomic History Marital status: Spouse name: Not on file Number of children: Not on file Years of education: Not on file Highest education level: Not on file Occupational History Not on file Tobacco Use Smoking status: Never Smokeless tobacco: Never Substance and Sexual Activity Alcohol use: Never Drug use: Never Sexual activity: Not on file Other Topics Concern Not on file Social History Narrative Not on file Social Determinants of Health Financial Resource Strain: Low Risk (05/06/2023) Overall Financial Resource Strain (CARDIA) Difficulty of Paying Living Expenses: Not hard at all Food Insecurity: No Food Insecurity (05/06/2023) Hunger Vital Sign Worried About Running Out of Food in the Last Year: Never true Ran Out of Food in the Last Year: Not on file Transportation Needs: No Transportation Needs (05/06/2023) Transportation Lack of Transportation (Medical): No Lack of Transportation (Non-Medical): Not on file Physical Activity: Not on file Stress: Not on file Social Connections: Not on file Intimate Partner Violence: Unknown (05/06/2023) Humiliation, Afraid, Rape, and Kick questionnaire Fear of Current or Ex-Partner: No Emotionally Abused: Not on file Physically Abused: Not on file Sexually Abused: Not on file Housing Stability: Low Risk (05/06/2023) Housing Stability Vital Sign Unable to Pay for Housing in the Last Year: Not on file Number of Places Lived in the Last Year: Not on file Unstable Housing in the Last Year: No No family history on file. Physical Exam There were no vitals taken for this visit. Musculoskeletal Ortho spine musculoskeletal examination: Alignment spine: normal Tenderness: no midline or paraspinal lumbar Range of motion Cervical spine: normal Range of motion lumbar spine: limited Neurological Biceps strength: 5 Wrist extension: 5 Triceps strength: 5 Finger flexor: 5 Finger abduction strength: 5 Flexion at the hip strength: 5 Quadriceps strength: 5 Tibialis anterior strength: 5 Plantar flexion strength: 5 Extensor Hallicis Longus strength: 5 Sensory Exam: intact Straight leg raising: Negative Positive degrees DTR/ Pathologic reflexes Biceps reflex- 2 Brachioradialis reflex- 2 Triceps reflex- 2 Patellar reflex- 2 Achilles reflex- 2 Babinski- negative Manuel reflex: Absent Gait and station Gait: Normal Tandem gait: Able Images: I, Dr. Cedric Alexis, personally reviewed the images and my personal interpretation are: X ray done in the clinic today, good alignment of the spine Assessment and Plan 53 years returns to the clinic for follow up after L3-5 decompression nad fusion 12 (more content not included)... [facility] Progress note 02-16-2024 Note Date & Type Note Facility 02-16-2024 Note Orthopedic Surgery Chief Complaint: low back stiffness HPI Radicular pain: improved Numbness/tingling: No Pain is getting: gradually improving Weakness: No What improves symptoms: Rest What makes symptoms worse: Activity Gait disturbance: No Previous surgeries for this problem: L3-5 decompression and fusion, spine, lumbar, excision of synovial cyst 05/06/23 ROS Constitutional: Fatigue: No Weight loss: No Fever: No Chills: No Past Medical History: Diagnosis Date Allergic rhinitis Arthritis Asthma COVID Hypertension Intervertebral disc stenosis of neural canal of lumbar region Lumbar radiculopathy OA (osteoarthritis) Plantar fasciitis Pneumonia PONV (postoperative nausea and vomiting) Spondylolisthesis of lumbar region Spondylosis with myelopathy, lumbar region Past Surgical History: Procedure Laterality Date CHOLECYSTECTOMY TONSILLECTOMY Physical Exam Musculoskeletal Ortho spine musculoskeletal examination: Alignment spine: normal Tenderness: no midline or paraspinal Range of motion Cervical spine: normal Range of motion lumbar spine: limited Neurological Biceps strength: 5 Wrist extension: 5 Triceps strength: 5 Finger flexor: 5 Finger abduction strength: 5 Flexion at the hip strength: 5 Quadriceps strength: 5 Tibialis anterior strength: 5 Plantar flexion strength: 5 Extensor Hallicis Longus strength: 5 Sensory Exam: intact Straight leg raising: Negative DTR/ Pathologic reflexes Biceps reflex- 2 Brachioradialis reflex- 2 Triceps reflex- 2 Patellar reflex- 2 Achilles reflex- 2 Babinski- negative Manuel reflex: Absent Gait and station Gait: Normal Assessment and Plan 53 years returns to the clinic for follow up,after L3-5 decompression and fusion, spine, lumbar, excision of synovial cyst 05/06/23 Radicular pain improved, residual low back stiffness Explained the clinical and radiological findings. Recommended muscle relaxant, increase activities as tolerated Follow up [address] [facility] Progress note 08-03-2023 Note Date & Type Note Facility 08-03-2023 Note -------- Attestation signed by Cedric Alexis MD at 08/03/2023 11:16 PM I personally saw and examined the patient on the same date of service as resident/fellow Otf Plunkett. I discussed the findings and therapeutic plan with the resident/fellow Otf Plunkett. I agree with the documentation, except for any edits/updates below. -------- Orthopedic Surgery Subjective 05/06/2023 L3-5 Decompression and [...] activities. Otf Plunkett MD PGY-4 Orthopedic Surgery [facility] By using the attestations below, the signing [...] be an additional personal documentation from me. [facility] Progress note 06-22-2023 Note Date & Type Note Facility 06-22-2023 Note ---- Attestation signed by Cedric Alexis MD at 06/22/2023 11:04 AM I personally saw and examined the patient on the same date of service as resident/fellow Sinan Caraballo. I discussed the findings and therapeutic plan [...] of low back pain that started around [place] last year 2021. Patient states that she [...] her ankle and foot region. Patient takes [id number] anti-inflammatories for pain however she does not [...] D - Patie (more content not included)... [facility] Summary Purpose Family History No Family History Records FoundNo Family History Records Found Advance Directives No Advanced Directives Records FoundNo Advanced Directives Records Found Additional Source Comments INFORMATION SOURCE (unrecogn ized section and content) DATE CREATED AUTHOR 10/29/2022 [facility] DATE CREATED AUTHOR AUTHOR'S ORGANIZ ATION 05/21/2024 [facility] FOR RECORDS PERTAINING TO PATIENTS WHO [...] BE BASED ON THE PRIMARY CLINICAL RECORDS. [employer] provides no warranty or guarantee of the accuracy or completeness of information in this document.
--- NOTE | 2024-10-09 10:38 | MM_ITS ---
Patient Name: JASON CASTRO MR#: [id number] : 1970 Exam Date: 10/09/2024 Ordering Doctor: DR VANE ADORNO . RADIOLOGY REPORT PROCEDURE: MM TOMOSYNTHESIS SCREENING BI COMPARISON: MM TOMOSYNTHESIS SCREENING BI, 08/05/2023. MG MAMM SCREEN 3D CHARLIE CAD, 05/07/2022. MG MAMM SCREEN 3D CHARLIE CAD, 03/24/2021. MG MAMM CHARLIE SCRN W CAD DIG, 02/26/2014. INDICATIONS: Screening Calculator Name NCI Breast Cancer Risk Assessment Tool 5 Year Breast Cancer Risk 1.40% Lifetime Breast Cancer Risk 10.60% Personal Breast Cancer No Personal Ovarian Cancer No Treatments None Family Cancers Cousin-maternal with breast cancer at age ~41. LOCATION: [facility] BREAST COMPOSITION: The breasts are almost entirely fatty. FINDINGS: RIGHT BREAST: No significant suspicious finding. Similar focal asymmetries are present . A benign-appearing lymph node is noted along the right chest wall. LEFT BREAST: No significant suspicious finding. Similar focal asymmetries are present. DIAGNOSTIC CATEGORY 2--BENIGN FINDING: RECOMMENDATIONS: ROUTINE MAMMOGRAM AND CLINICAL EVALUATION IN 12 MONTHS. PLEASE NOTE: A NORMAL MAMMOGRAM DOES NOT EXCLUDE THE POSSIBILITY OF BREAST CANCER. A CLINICALLY SUSPICIOUS PALPABLE LUMP SHOULD BE BIOPSIED. Dictated by: Zi Rodriguez MD on 10/09/2024 at 13:51 Approved by: Zi Rodriguez MD on 10/09/2024 at 13:54
== END 2024-10-09 10:32 | disposition home or self-care (01) ==
LOC: MAMMO 10:33
PROVIDERS: PCP Family Medicine; Visit Provider Family Medicine
DX: Z12.31 Encounter for screening mammogram for malignant neoplasm of breast (principal); Z80.3 Family history of malignant neoplasm of breast
CPT/HCPCS: 77063; 77067

== ENCOUNTER 2024-10-30 16:15 | Outpatient (OUT) | payer OTHER, SELFPAY ==
--- OUTSIDE RECORDS SUMMARY | 2024-10-23 10:00 | XMS_ITS ---
Author Organization [facility] [place] Address [address] [place] [address] Care Team Providers Care Steel Roller Name Role Phone Kev Egan Primary Care Provider Lynette Barrios Unavailable [phone] Allergies No Known Allergies REASON FOR VISIT Presents to office with son for urinary frequency and dysuria x5 days. Currently taking Azo Medications Medication SIG (Take, Route, Frequency, Duration) Notes Start Date End Date Status Fluticasone-Salmeterol 250-50 MCG/ACT INHALE 1 PUFF BY MOUTH TWICE A DAY Inhalation for 30 Days Active Albuterol Sulfate HFA 108 (90 Base) MCG/ACT 1 puff as needed Inhalation every 4 hrs Active Montelukast Sodium 10 mg TAKE ONE TABLET BY MOUTH ONCE DAILY for 30 days Active Meloxicam 15 MG 1 tablet Orally Once a day for 30 days 03/13/2024 Active Semaglutide [facility] Ac tive ZyrTEC Allergy 10 MG 1 tablet Orally Onc e a day Active Cefdinir 300 MG one capsule Orally BID for 10 days 10/23/2024 Active levoFLOXacin 750 MG 1 tablet Orally Once a day for 10 day(s) 10/19/2024 Active Social History Tobacco Use: Social History Observation Description Date Details (start date - stop date) Never Smoker NA - NA Tobacco Use/Smoking Question Answer Notes Patient is a nonsmoker AUDIT-C (Standard) Question Answer Notes Did you have a drink containing alcohol in the p ast year? No Points 0 Interpretation Negative Vital Signs Weight 215 lbs 10/23/2024 Height 65 in 10/23/2024 Blood pressure systolic 136 mm Hg 10/24/19 25 Blood pressure diastolic 80 mm Hg 025 Temperature 98.4 degrees Fahrenheit 10/24/19 25 BMI 35.77 kg/m2 10/23/2024 Encounters Encounter Location Date Provider Diagnosis [facility] [address] [facility] [place] [address] 10/23/2024 Lynette Barrios Dysuria R30.0 Assessments Encounter Date Diagnosis (ICD Code) Assessment Notes Treatment Notes Treatment Clinical Notes Section Notes 10/23/2024 Dysuria (ICD-10 - R30.0) defers urine testing trial of cefdinir fu if not improving Plan Of Treatment Medication Medication Name Sig Start Date Stop Date Notes Cefdinir 300 MG one capsule Orally BID for 10 days 025 Treatment Notes Assessment Notes Dysuria defers urine testing trial of cefdinir fu if not improving Next Appt Details Follow Up: prn, Reason: Progress Notes * Ann-Marie BROWER SDOB:1970 (53 yo F)Acc No.[id number]:10/23/2024 Progress Note Patient: Ann-Marie GIANG Provider: Kaela Barrios ([facility]), EMPLOYEE DEVELOPMENT SPECIALIST :1970 A ge:53 Y S ex:Female Date:10/23/2024 [facility] [facility] Pcp:Kev Egan Check In:01:28 PM ESTCheck O ut:01:51 PM EST Subjective: * Chief Complaints: * 1 . Presents to office with son for urinary frequency and dysuria x5 days. Currently taking Azo. * HPI: G eneral: UTI sx have had in past no back pain no fever. * ROS: G eneral/Constitutional: Fever d enies. H eadache d enies. W eight loss?denies. O phthalmologic: Discharge d enies. E ye Pain d enies. I tching and redness d enies. E NT: Nasal discharge d enies. N santiago congestion d enies.?Sore throat d enies. C ardiovascular: Chest tightness/ heavy pressure d enies. R apid heart rate d enies. S welling of extremities d enies. C hest pain d enies. ? R espiratory: Productive cough d enies. C hest pain d enies. C ough d enies. S hortness of breath d enies. W heezing d enies. ? G astrointestinal: Abdominal pain d enies. C onstipation d enies. D ecreased appetite d enies. D iarrhea d enies. N ausea d enies. V omiting?denies. G enitourinary: Urinary incontinence d enies. P ainful urination a dmits and frequency. M usculoskeletal: Back pain d enies. N esther pain d enies. M uscle aches d enies. S kin: Rash d enies. S kin lesion(s) d enies. ? * Active Problem List J01.90 Acute sinusitis Modified On:09/20/2022 Status:confirmed Z00.00 Well adult Modified On:09/20/2022 Status:confirmed L03.90 Cellulitis Modified On:09/20/2022 Status:confirmed M72.2 Plantar fasciitis Modified On:09/20/2022 Status:confirmed E66.3 Over weight Modified On:09/20/2022 Status:confirmed J30.2 Allergic rhinitis, s easonal Modified On:09/20/2022 Status:confirmed K12.0 Aphthous ulcer of mo uth Modified On:09/20/2022 Status:confirmed U07.1 COVID-19 virus infec tion Modified On:09/20/2022 Status:confirmed M54.59 Other low back pain Modified On:09/20/2022U Status:confirmed I10 Hypertension Modified On:04/25/2023 Status:confirmed J45.909 Asthma Modified On:09/20/2022 Status:confirmed M17.9 Osteoarthritis of kn ee Modified On:09/20/2022U Status:confirmed J18.1 Lobar pneumonia, uns pecified organism Modified On:09/20/2022 Status:confirmed M54.9 Dorsalgia, unspecifi ed Modified On:11/08/2022/U Status:confirmed M54.30 Sciatica, unspecifie d side Modified On:09/17/2022/U Status:confirmed M54.16 Lumbar radiculopathy Modified On:11/08/2022/U Status:confirmed M51.26 Other intervertebral disc displacement, lumbar region Modified On:11/19/2022/U Status:confirmed M47.816 Spondylosis without myelopathy or radiculopathy, lumbar region Modified On:04/07/2023/U Status:confirmed * Medical History: A phthous ulcer of mouth, Other low back pain, Over weight, COVID-19 virus infection, Acute sinusitis, Well adult, Lobar pneumonia, unspecified organism, Cellulitis, Osteoarthritis of knee, Hypertension, Plantar fasciitis, Allergic rhinitis, seasonal, Asthma. * Surgical History: G allbladder , Tonsillectomy , Spinal fusion L3-L5 . * Family History: F ather: alive, diagnosed with Unspecified heart disease. M other: alive, breast Ca, diagnosed with Unspecified essential hypertension, Other malignant neoplasm of unspecified site. B rother(s): alive. S on(s): alive. 1 brother(s) . . * Social History: T obacco Use: T obacco Use/Smoking P atient is a n onsmoker D rug/Alcohol: A DEISY-C (Standard) D id you have a drink containing alcohol in the past year? N o P oints 0 I nterpretation N egative * Medications: T aking Albuterol Sulfate HFA 108 (90 Base) MCG/ACT Aerosol Solution 1 puff as needed Inhalation every 4 hrs , Taking Fluticasone-Salmeterol 250-50 MCG/ACT Aerosol Powder Breath Activated INHALE 1 PUFF BY MOUTH TWICE A DAY Inhalation , Taking levoFLOXacin 750 MG Tablet 1 tablet Orally Once a day , Taking Meloxicam 15 MG Tablet 1 tablet Orally Once a day , Taking Montelukast Sodium 10 mg Tablet TAKE ONE TABLET BY MOUTH ONCE DAILY , Taking Semaglutide , Notes to Pharmacist: [facility], Taking ZyrTEC Allergy(Cetirizine HCl) 10 MG Tablet 1 tablet Orally Once a day , Discontinued Amoxicillin-Pot Clavulanate 875-125 MG Tablet 1 tablet Orally every 12 hrs , Discontinued predniSONE 20 MG Tablet 2 tablets Orally Once a day , Medication List reviewed and reconciled with the patient * Allergies: N .K.D.A. Objective: * Vitals: W t:215lbs, Ht: 65 in, BP:136/80mm Hg, Temp:98.4F, BMI:35.77Index, Ht-cm: 165.1 cm, Wt-k.52 kg. * Examination: G eneral Examinations: GENERAL APPEARANCE: a lert and oriented, i n no acute distress. EYES: c onjunctiva normal, sclera non-icteric. NOSE: n ormal external appearance. LUNGS: c lear to auscultation bilaterally. CARDIO: r egular rate and rhythm, S1, S2 normal. MUSCULOSKELETAL: G ait and station normal. SKIN: w arm and dry. Assessment: * Assessment: 1. D ysuria - R30.0 (Primary) Plan: * Treatment: * Preventive Medicine: Screenings/Counseling: B AR ACTION PLAN Above Normal BMI Follow-up D ietary management education, guidance, and counseling See treatment section of progress note for complete details of management plan. * Follow Up: p rn * * Electronically signed by Tameka Barrios , ANESTHESIOLOGIST ASSISTANT CERTIFIED, HOTEL MAINTENANCE WORKER.EMPLOYEE DEVELOPMENT SPECIALIST.[id number] on 10/25/2024 at 02:46 PM EDT Sign off status: Completed Visit Status: C HK (Check Out) true * Provider: Kaela Barrios ([facility]), EMPLOYEE DEVELOPMENT SPECIALIST Date: 10/23/2024 Generated for Nayeli diez/Diogenes/eTransmitting on: 10/30/2024 04:18 PM EDT History and Physical Notes * HPI (History of Present Illness) Category Sub-Category Detail Notes Category Not es General UTI sx have had in past no back pain no fever Examination Category Sub-Category Detail Notes Category Not es General Examinations GENERAL APPEARANCE: alert a nd oriented, in no acute distress EYES: conjunctiva normal, sclera non-icteric EARS: NOSE: normal external appe arance THROAT: CARDIO: regular rate and rhy thm, S1, S2 normal LUNGS: clear to auscultatio n bilaterally ABDOMEN: SKIN: warm and dry BACK: MUSCULOSKELETAL: Gait and station nor mal LYMPH NODES:
--- OUTSIDE RECORDS SUMMARY | 2024-10-29 06:41 | XMS_ITS ---
Author Organization [facility] in [place] Address [address] [place] [address] Care Team Providers Care Petrophysicist Name Role Phone Kev Egan Primary Care Provider [phone] REASON FOR VISIT UTI no better Medications Medication SIG (Take, Route, Frequency, Duration) Notes Start Date End Date Status Ciprofloxacin HCl 500 MG 1 tablet Orally every 12 hrs for 10 days 10/29/2024 Active Encounters Encounter Location Date Provider Diagnosis [facility] [address] [place] [address] 10/29/2024 Kev Egan Frequency R35.0 Assessments Encounter Date Diagnosis (ICD Code) Assessment Notes Treatment Notes Treatment Clinical Notes Section Notes 10/29/2024 Frequency (ICD-10 - R35.0) Plan Of Treatment Medication Medication Name Sig Start Date Stop Date Notes Ciprofloxacin HCl 500 MG 1 tablet Orally every 12 hrs for 10 days 10/29/2024 Pending Test Test Name Order Date UA (URINALYSIS, COMPLETE) 10/29/2024 CULTURE, URINE w SENSITIVITY 10/29/2024 URINALYSIS MICROSCOPIC 10/29/2024 Progress Notes * Ann-Marie BROWER SDOB:1970 (53 yo F)Acc No.[id number]:10/29/2024 Patient: Ann-Marie GIANG :1970 A ge:53 Y S ex:Female Address:[address] [place], [place] [address], [address] * Refills Start Ciprofloxacin HCl Tablet, 500 MG, Orally, 20 Tablet, 1 tablet, every 12 hrs, 10 days Subjective: * Chief Complaints: * U TI no better * Medical History: * Surgical History: * Hospitalization/Major Diagno stic Procedure: * Medications: Objective: * Vitals: * Physical Examination: Assessment: * Assessment: 1. F requency - R35.0 Plan: * Treatment: 2. O thers Start Ciprofloxacin HCl Tablet, 500 MG, 1 tablet, Orally, every 12 hrs, 10 days, 20 Tablet. ? * Procedure Codes: * true * Date: Generated for Nayeli diez/Diogenes/Paulsmitting on: 0 10/30/2024 04:18 PM EDT
--- OUTSIDE RECORDS SUMMARY | 2024-10-30 16:18 | XMS_ITS | Clinical Summary ---
Author Organization [facility] Address [address] [place] [address] Care Team Providers Care Rn Endocrinology Name Role Phone Basil Egan MD Primary Care Provider [phone] Allergies No known active allergies Medications Medication Sig Dispensed Refills Start Date End Date Status lisinopril 20 mg tablet Take 20 mg by mouth at bedtime. 03/28/2023 Active montelukast (Singulair) 10 mg tablet Take 10 mg by mouth at bedtime. 03/28/2023 Active albuterol 90 mcg/actuation inhaler INHALE 1 TO 2 PUFFS FOUR TIMES A DAY NEEDED 04/08/2022 Active cetirizine (ZyrTEC) 10 mg tablet Take 10 mg by mouth at bedtime. Active fluticasone propion-salmeteroL (Advair Diskus) 250-50 mcg/dose diskus inhaler Inhale 1 puff in the morning and at bedtime. Rinse mouth with water after use to reduce aftertaste and incidence of candidiasis. Do not swallow. Active acetaminophen (Tylenol) 500 mg tabletIndications:S pondylolisthesis at L4-L5 level Take 2 tablets (1,000 mg) by mouth every 6 (six) hours if needed for mild pain (1-3 pain score). 60 tablet 1 07/13/2023 Active ergocalciferol (Vitamin D2) 1.25 MG (49152 Units) capsuleIndications: Spondylolisthesis at L4-L5 level TAKE 1 CAPSULE (50,000 UNITS) BY MOUTH 1 (ONE) TIME PER WEEK FOR 12 DOSES. 12 capsule 08/16/2023 Active cyclobenzaprine (Flexeril) 10 mg tabletIndications:R adiculopathy, lumbar region Take 1 tablet (10 mg) by mouth if needed in the morning, at noon, and at bedtime for muscle spasms. 30 tablet 02/16/2024 Active Active Problems Problem Noted Date Diagnosed Date Asthma 05/06/2023 HTN (hypertension) 05/06/2023 Allergic rhinitis 05/06/2023 Spondylolisthesis at L4-L5 level 05/06/2023 Social History Tobacco Use Types Packs/Day Years Used Date Smoking Tobacco: Never Smokeless Tobacco: Never Tobacco Cessation:Counseling Given: Not Answered Alcohol Use Standard Drinks/Week Comments Never 0 (1 standard drink = 0.6 oz pur e alcohol) Humiliation, Afraid, Rape, and Kick questionnair e Answer Date Recorded Within the last year, have y ou been afraid of your partner or ex-partner? No 05/06/2023 Emotionally Abused Not on file 05/06/2023 Physically Abused Not on file 05/06/2023 Sexually Abused Not on file 05/06/2023 Overall Financial Resource Strain (CARDIA) Answe r Date Recorded How hard is it for you to pa y for the very basics like food, housing, medical care, and heating? Not hard at all 05/06/2023 PHQ-2 Answer Date Recorded Patient Health Questionnaire-2 Score 0 04/27/2023 Transportation Answer Date Recorded In the past 12 months, has l ack of transportation kept you from medical appointments or from getting medications? No 05/06/2023 Lack of Transportation (Non-Medical) Not on file 05/06/2023 Housing Stability Vital Sign Answer Victor Hugo e Recorded Unable to Pay for Housing in the Last Year Not o n file 05/06/2023 Number of Places Lived in the Last Year Not on f ile 05/06/2023 In the last 12 months, was t here a time when you did not have a steady place to sleep or slept in a fdc (including now)? No 05/06/2023 Hunger Vital Sign Answer Date Recorded Within the past 12 months, y ou worried that your food would run out before you got the money to buy more. Never true 05/06/20 23 Ran Out of Food in the Last Year Not on file 05/06/2023 Sex and Gender Information Value Date Recorded Sex Assigned at Not on file Gender Identity Not on file Sexual Orientation Not on file Last Filed Vital Signs Vital Sign Reading Time Taken Comments Blood Pressure 130/73 05/09/2023 7:30 AM EST Pulse 88 05/09/2023 7:30 AM EST Temperature 37.1 C (98.8 F) 05/09/2023 7:30 AM EST Respiratory Rate 16 05/09/2023 7:30 AM EST Oxygen Saturation 99% 05/09/2023 7:30 AM EST Inhaled Oxygen Concentration - - Weight 101 kg (223 lb) 06/22/2023 10:31 AM EST Height 167.6 cm (5' 6 ) 06/22/2023 10:31 AM EST Body Mass Index 35.99 06/22/2023 10:31 AM EST Plan of Treatment Health Maintenance Due Date Last Done Comments CT Colonography 1970 Colonoscopy 1970 Colorectal Cancer Screening 1970 FIT-DNA 1970 FIT 1970 FOBT 1970 Sigmoidoscopy 1970 Pneumococcal Vaccine: Pediatrics (0 to 5 Years) and At-Risk Patients (6 to 64 Years) (1 of 2 - PCV) 1976 Depression Screening 1982 Hepatitis B Vaccines (1 of 3 - 19+ 3-dose series) 1989 Pap Smear 11/29/1991 Adult Tetanus 1992 Cervical Cancer Screening 2000 HPV/Cotest 2000 Mammogram 2010 Zoster Vaccines (1 of 2) 2020 COVID-19 Vaccine (3 - 2023-2 5 season) 2024 09/08/2020, 08/11/2020 Influenza Vaccine (Season Ended) 2025 04/29/2009 HIB Vaccines Aged Out No longer eligi ble based on patient's age to complete this topic HPV Vaccines Aged Out No longer eligi ble based on patient's age to complete this topic IPV Vaccines Aged Out No longer eligi ble based on patient's age to complete this topic Meningococcal B Vaccine Aged Out No l onger eligible based on patient's age to complete this topic Meningococcal Vaccine Aged Out No danny shaan eligible based on patient's age to complete this topic Rotavirus Vaccines Aged Out No longer eligible based on patient's age to complete this topic Medical Devices Implanted Type Area Tire Room Supervisor Device Identifier Shelf Expiration Date Model / Serial / Lot Tissue,Luis A n,10 - [id number] - [id number] Implanted:Qty : 1 on 05/06/2023 by Edgardo Alexis MD at [facility] Allograft Tissue N/A: Spine Lumbar LIFENET 03/02/2024 BL-1500-003 / [id number] / Tissue,Luis A andrews,10 - [id number] - [id number] Implanted:Qty : 1 on 05/06/2023 by Edgardo Alexis MD at [facility] Allograft Tissue N/A: Spine Lumbar LIFENET 03/02/2024 BL-1500-003 / [id number] / Tissue,Bone,C anc-Chips,90c c - [id number] - [id number] Implanted:Qty : 1 on 05/06/2023 by Edgardo Alexis MD at [facility] Bone N/A: Spine Lumbar LIFENET 12/09/2027 [facility] / [id number] / Setscrew,Inne r,Single - [id number] Implanted:Qty : 6 on 05/06/2023 by Edgardo Alexis MD at [facility] Screw N/A: Spine Lumbar Jairo & Jairo [id number] / / Spine Screw 7 X 40 Implanted:Qty : 5 on 05/06/2023 by Edgardo Alexis MD at [facility] N/A: Spine Lumbar DEPUY / / Spine Screws 7 X 45 Implanted:Qty : 1 on 05/06/2023 by Edgardo Alexis MD at [facility] N/A: Spine Lumbar DEPUY / / Spine Ernie 65 Mm Implanted:Qty : 2 on 05/06/2023 by Edgardo Alexis MD at [facility] N/A: Spine Lumbar DEPUY [id number] / / Advance Directives * Full Code (Latest Code Status on File) Date Activated Date Inactivated Comments 05/06/2023 5:57 PM 05/09/2023 2:40 PM Care Teams Rn Endocrinology Relationship Specialty Start Date End Date Basil Egan MD [address] [facility] [place] [address] PCP - General 02/09/23
--- OUTSIDE RECORDS SUMMARY | 2024-10-30 16:18 | XMS_ITS | Clinical Summary ---
Author Organization [facility] Address [address] [place] [address] Care Team Providers Care Dictating Machine Transcriber Name Role Phone Basil Egan MD Unavailable [phone] Social History Tobacco Use Types Packs/Day Years Used Date Smoking Tobacco: Never Assessed PHQ-2 Answer Date Recorded PHQ-2 score 0 01/05/2023 Area Deprivation Index Answer Date Jett rded National Score (1-100), lower number is lower ri sk 86 01/06/2023 State Score (1-10), lower number is lower risk 8 01/06/2023 Data from: https://www.neighborhoodatlas.medicine.[facility].edu/. Last address used for calculation [address] 01/06/2023 Comments Unknown Sex and Gender Information Value Date Recorded Sex Assigned at Not on file Legal Sex Female 3:04 PM EDT Gender Identity Not on file Sexual Orientation Not on file Plan of Treatment Health Maintenance Due Date Last Done Comments Anxiety Screening 1988 Depression Screening 1988 HIV Screening 1988 Hepatitis C Screening 1988 DTaP,Tdap,Td Vaccine (1 - Tdap) 1989 Hepatitis B Vaccine (1 of 3 - 19+ 3-dose series) 11/28 Cervical Cancer Screening 11/29/[address] Colonography 11/29/2015 Cologuard (FIT-DNA) 11/29/2015 Colonoscopy 11/29/2015 Colorectal Cancer Screening 11/29/2015 Diabetes Screening 11/29/2015 Fecal Occult Blood 11/29/2015 Lipid Screening 11/29/2015 Sigmoidoscopy 11/29/2015 Pneumococcal Vaccine: 50+ (1 of 1 - PCV) 2020 Shingrix Vaccine (1 of 2) 2020 Covid-19 Vaccine ( - 2023- season) 2024 Influenza Vaccine (Season Ended) 2025 Insurance [facility] Care Teams Dictating Machine Transcriber Relationship Specialty Start Date End Date Basil Egan MD [address] [place] [address] Referring Family Medicine 11/28/22
--- OUTSIDE RECORDS SUMMARY | 2024-10-30 16:18 | XMS_ITS | Referral Summary ---
Author Organization [facility] Address [address] [place] [address] Care Team Providers Care Air Defence Officer Name Role Phone Basil Egan MD Primary Care Provider [phone] Allergies No known active allergies Medications Medication [...] 07/13/2023 Active ergocalciferol (Vitamin D2) 1.25 MG (57300 Units) capsuleIndications: Spondylolisthesis at L4-L5 level TAKE [...] place to sleep or slept in a senior care (including now)? No 05/06/2023 Hunger Vital Sign [...] 06/22/2023 10:31 AM EST Plan of Treatment Not on file Medical Devices Implanted Type Area Unisaw Operator Device Identifier Shelf Expiration Date Model / Serial / Lot TissueLuis A n,[facility] - [id number] - [id number] Implanted:Qty : 1 on 05/06/2023 by Edgardo Alexis MD at [facility] Allograft Tissue N/A: Spine Lumbar LIFENET 03/02/2024 -1500-003 / [id number] / TissueLuis A n,10 - [id number] - [id number] Implanted:Qty : 1 on 05/06/2023 by Edgardo Alexis MD at [facility] Allograft Tissue N/A: Spine Lumbar LIFENET 03/02/2024 -1500-003 / [id number] / Tissue,Bone,C anc-Chips,90c c - [id number] - [id number] Implanted:Qty : 1 on 05/06/2023 by Edgardo Alexis MD at [facility] Bone N/A: Spine Lumbar LIFENET 12/09/2027 [employer] / [id number] / SetscrewGermán r,Single - [id number] Implanted:Qty : 6 on 05/06/2023 by Edgardo Alexis MD at [facility] Screw N/A: Spine Lumbar Jairo [employer]airo [id number] / / Spine Screw 7 X 40 Implanted:Qty : 5 on 05/06/2023 by Edgardo Alexis MD at [facility] N/A: Spine Lumbar DEPUY / / Spine Screws 7 X 45 Implanted:Qty : 1 on 05/06/2023 by Edgardo Alexis MD at [facility] N/A: Spine Lumbar DEPUY / / Spine Ernie 65 Mm Implanted:Qty : 2 on 05/06/2023 by Edgardo Alexis MD at [facility] N/A: Spine Lumbar DEPUY [id number] / / Advance Directives * Full Code (Latest Code Status on File) Date Activated Date Inactivated Comments 05/06/2023 5:57 PM 05/09/2023 2:40 PM Care Teams Air Defence Officer Relationship Specialty Start Date End Date Basil Egan MD [address] [facility] [place] [address] PCP - General 02/09/23
--- OUTSIDE RECORDS SUMMARY | 2024-10-30 16:18 | XMS_ITS | Clinical Summary ---
Author Organization [facility] Address [address] [place] [address] Care Team Providers Care Blending Tank Helper Name Role Phone Unavailable Primary Care Provider Unavailabl e Encounters Date Type Department Care Team Description 08/22/2024 Travel from Last 3 Months Social History Tobacco Use Types Packs/Day Years Used Date Smoking Tobacco: Never Assessed Comments Unknown Sex and Gender Information Value Date Recorded Sex Assigned at Not on file Legal Sex Female 6:39 PM EDT Gender Identity Not on file Sexual Orientation Not on file Plan of Treatment Health Maintenance Due Date Last Done Comments CT Colonography 1970 Colonoscopy 1970 Colorectal Cancer Screening 1970 FIT-DNA 1970 FIT 1970 FOBT 1970 Sigmoidoscopy 1970 Pap Smear 11/29/1991 Cervical Cancer Screening 2000 HPV/Cotest 2000 Mammogram 2010 Influenza Vaccine (Season Ended) 2025 Insurance [employer]
--- OUTSIDE RECORDS SUMMARY | 2024-10-30 16:18 | XMS_ITS | Patient Health Record ---
Author Organization [facility] [place] Address [address] [place] [address] Care Team Providers Care Physical Chemistry Professor Name Role Phone Julisa Kev Primary Care Provider SophieLynette Unavailable [phone] Allergies No Known Allergies Results Component Value Reference Range Notes MM tomosynthesis screening B I Reviewed date:10/09/2024 08:38:52 PM Interpretation: Performing Lab: Notes/Report: Source Facility: [place] [id number] Mammography Report Signed Patient: ANN-MARIE BROWER MR#: [id number] : 1970 Acct:[id number] Age/Sex: 53 / F ADM Date: 10/09/24 Loc: MAMMO Attending Dr: Vane Adorno M.D. Ordering Physician: Vane Adorno M.D. Results: Date of Service: 10/09/24 Follow Up: Procedure(s): MM tomosynthesis screening BI Accession Number(s): [id number] cc: Vane Adorno M.D. Patient Name: ANN-MARIE BROWER MR#: [id number] : 1970 Exam Date: 10/09/2024 Ordering Doctor: DR VANE ADORNO . RADIOLOGY REPORT PROCEDURE: MM TOMOSYNTHESIS SCREENING BI COMPARISON: MM TOMOSYNTHESIS SCREENING BI, 08/05/2023. MG MAMM SCREEN 3D CHARLIE CAD, 05/07/2022. MG MAMM SCREEN 3D CHARLEI CAD, 03/24/2021. MG MAMM CHARLIE SCRN W CAD DIG, 02/26/2014. INDICATIONS: Screening Calculator Name NCI Breast Cancer Risk Assessment Tool 5 Year Breast Cancer Risk 1.40% Lifetime Breast Cancer Risk 10.60% Personal Breast Cancer No Personal Ovarian Cancer No Treatments None Family Cancers Cousin-maternal with breast cancer at age 41. LOCATION: [facility] BREAST COMPOSITION: The breasts are almost entirely fatty. FINDINGS: RIGHT BREAST: No significant suspicious finding. Similar focal asymmetries are present . A benign-appearing lymph node is noted along the right chest wall. LEFT BREAST: No significant suspicious finding. Similar focal asymmetries are present. DIAGNOSTIC CATEGORY 2--BENIGN FINDING: RECOMMENDATIONS: ROUTINE MAMMOGRAM AND CLINICAL EVALUATION IN 12 MONTHS. PLEASE NOTE: A NORMAL MAMMOGRAM DOES NOT EXCLUDE THE POSSIBILITY OF BREAST CANCER. A CLINICALLY SUSPICIOUS PALPABLE LUMP SHOULD BE BIOPSIED. Dictated by: Zi Rodriguez MD on 10/09/2024 at 13:51 Approved by: Zi Rodriguez MD on 10/09/2024 at 13:54 Dictated By: Zi Rodriguez M.D. Signed By: 10/09/24 1355 DD/ 1354 TD/TT: Offensive Coordinator: [place] [address] Mammography Report Signed Patient: JAVID BROWER MR#: [id number] : 1970 Acct:[id number] Age/Sex: 53 / F ADM Date: 10/09/24 Loc: MAMMO Attending Dr: Vane Adorno M.D. Ordering Physician: Vane Adorno M.D. Results: Date of Service: Follow Up: Procedure(s): MM kvng osynthesis screening BI Accession Number(s): [id number] cc: Vane Adorno M.D. Patient Name: ANN-MARIE BROWER MR#: [id number] : 1970 Exam Date: 10/09/2024 Ordering Doctor: DR VANE ADORNO . RADIOLOGY REPORT PROCEDURE: MM TOMOSY NTHESIS SCREENING BI COMPARISON: MM TOMOS YNTHESIS SCREENING BI, 08/05/2023. MG MAMM SCREEN 3D CHARLIE CAD, 05/07/2022. MG MAMM SCREEN 3D CHARLIE CAD, 03/24/2021. MG MAMM CHARLIE SCRN W CAD DIG, 02/26/2014. INDICATIONS: Screening Calculator Name NCI Breast Cancer Risk Assessment Tool 5 Year Breast Cancer Risk 1.40% Lifetime Breast Canc er Risk 10.60% Personal Breast Cancer No Personal Ovarian Cancer No Treatments None Family Cancers Cousi n-maternal with breast cancer at age 41. LOCATION: [facility] BREAST COMPOSITION: The breasts are almost entirely fatty. FINDINGS: RIGHT BREAST: No sig nificant suspicious finding. Similar focal asymmetries are present . A benign-appearing lymph node is noted along the right chest wall. LEFT BREAST: No sign ificant suspicious finding. Similar focal asymmetries are present. DIAGNOSTIC CATEGORY 2--BENIGN FINDING: RECOMMENDATIONS: ROUTINE MAMMOGRAM AN D CLINICAL EVALUATION IN 12 MONTHS. PLEASE NOTE: A WHITNEY L MAMMOGRAM DOES NOT EXCLUDE THE POSSIBILITY OF BREAST CANCER. A CLINICALLY SUSPICIOUS PALPABLE LUMP SHOULD BE BIOPSIED. Dictated by: Zi kidd MD on 10/09/2024 at 13:51 Approved by: Zi kidd MD on 10/09/2024 at 13:54 Dictated By: Zi Rodriguez M.D. Signed By: 10/09/24 1355 DD/ 1354 TD/TT: Offensive Coordinator: IRMA, Flu A+B IH Reviewed date:10/09/2024 08:38:52 PM Interpretation: Performing Lab: Notes/Report: COVID POS FLU A neg FLU B neg Control POS Reason For Referral No Information Medications Medication SIG (Take, Route, Frequency, Duration) Notes Start Date End Date Status Fluticasone-Salmeterol 250-50 MCG/ACT INHALE 1 PUFF BY MOUTH TWICE A DAY Inhalation for 30 Days Active Albuterol Sulfate HFA 108 (90 Base) MCG/ACT 1 puff as needed Inhalation every 4 hrs Active Ciprofloxacin HCl 500 MG 1 tablet Orally every 12 hrs for 10 days 10/29/2024 Active Montelukast Sodium 10 mg TAKE ONE TABLET BY MOUTH ONCE DAILY for 30 days Active Meloxicam 15 MG 1 tablet Orally Once a day for 30 days 03/13/2024 Active ZyrTEC Allergy 10 MG 1 tablet Orally Once a day Active Cefdinir 300 MG one capsule Orally BID for 10 days 10/23/2024 Active Semaglutide [employer] tive levoFLOXacin 750 MG 1 tablet Orally Once a day for 10 day(s) 10/19/2024 Active Social History Tobacco Use: Social History Observation Description Date Details (start date - stop date) Never Smoker NA - NA Tobacco Use/Smoking Question Answer Notes Patient is a nonsmoker Alcohol Screen (Audit-C) Question Answer Notes Did you have a drink containing alcohol in the p ast year? No Points 0 Interpretation Negative AUDIT-C (Standard) Question Answer Notes Did you have a drink containing alcohol in the p ast year? No Points 0 Interpretation Negative Problems Problem Type SNOMED Code ICD Code Onset Dates Problem Status W/U Status Risk Notes Problem Pneumococcal pneumonia (075649628) Lobar pneumonia, unspecified organism (J18.1) Active confirmed Problem 259355352 Spondylosis without myelopathy or radiculopathy, lumbar region (M47.816) Active confirmed Problem 046226229 Other intervertebral disc displacement, lumbar region (M51.26) Active confirmed Problem 08863756 Sciatica, unspecified side (M54.30) Active confirmed Problem 216223109 Dorsalgia, unspecified (M54.9) Active confirmed Problem Hypertension (05352865) Hypertension (I10) Active confirmed Problem Asthma (472001897) Asthma (J45.909) Active confirmed Problem Osteoarthritis of knee (109338678) Osteoarthritis of knee (M17.9) Active confirmed Problem Lumbar radiculopathy (775835432) Lumbar radiculopathy (M54.16) Active confirmed Problem Acute sinusitis (03055984) Acute sinusitis (J01.90) Active confirmed Problem Well adult (822603985) Well adult (Z00.00) Active confirmed Problem Cellulitis (383722271) Cellulitis (L03.90) Active confirmed Problem Plantar fasciitis (896701193) Plantar fasciitis (M72.2) Active confirmed Problem Overweight (971608584) Over weight (E66.3) Active confirmed Problem Seasonal allergic rhinitis (251511483) Allergic rhinitis, seasonal (J30.2) Active confirmed Problem Aphthous ulcer of mouth (956971788) Aphthous ulcer of mouth (K12.0) Active confirmed Problem Disease caused by Severe acute respiratory syndrome coronavirus 2 (disorder) (641397353) COVID-19 virus infection (U07.1) Active confirmed Problem Low back pain (finding) (216810313) Other low back pain (M54.59) Active confirmed Vital Signs Temperature 98.4 degrees Fahrenheit 10/23/2024 Blood pressure diastolic 80 mm Hg 10/23/2024 Height 65 in 10/23/2024 Blood pressure systolic 136 mm Hg 10/23/2024 Weight 215 lbs 10/23/2024 BMI 35.77 kg/m2 10/23/2024 Encounters Encounter Location Date Provider Diagnosis [facility] [address] [place] [address] 03/13/2024 Kev Hoy Acute non-recurrent sinusitis, unspecified location J01.90 and Nasal congestion R09.81 [place] [address] [place] [address] 04/11/2024 Kev Hoy Acute non-recurrent sinusitis, unspecified location J01.90 and Nasal congestion R09.81 [place] [address] [place] [address] 10/23/2024 Lynette Sophie Dysuria R30.0 [place] [address] [place] [address] 09/19/2024 Kev Hoy Acute non-recurrent sinusitis, unspecified location J01.90 and Nasal congestion R09.81 [place] [address] [place] [address] 10/29/2024 Kev Hoy Frequency R35.0 [facility] [address] [facility] [place] [address] 07/24/2024 Kev Hoy [facility] [address] [facility] [place] [address] 08/17/2024 Kev Hoy [facility] [address] [facility] [place] [address] 09/06/[address] [facility] [address] [facility] [place] [address] 09/21/2024 Kev Hoy [facility] [address] [facility] [place] [address] 10/09/2024 Kev Adorno [facility] [address] [facility] [place] [address] 10/19/2024 Kev Adorno [facility] [address] [facility] [place] [address] 05/11/2024 Kev Adorno [facility] [address] [facility] [place] [address] 06/15/2024 Kev Adorno Assessments Encounter Date Diagnosis (ICD Code) Assessment Notes Treatment Notes Treatment Clinical Notes Section Notes 03/13/2024 Acute non-recurrent sinusitis, unspecified location (ICD-10 - J01.90) Rest and drink more liquids, especially water. You may use a humidifier or vaporizer to help keep the drainage moist. Mzuk-yla-wotjrcq Nasal Saline may help the stuffy and runny nose. Use Ibuprofen and or Tylenol as needed for fever, chills, body aches or pain. Children 5 years old should not be given froo-tdt-uvcweyp cough and cold medications such as guaifenesin and dextromethorphan. If you're over age 5, you may try utcg-qig-wpzcryh cold medications such as guaifenesin and dextromethorphan, or multi-symptom cold reliever such as Dayquil to help reduce the symptoms. Antibiotics have been prescribed. You should take these until completed and follow the directions. Antibiotics can sometimes cause upset stomach, and in rare cases, serious allergic reactions or serious gastrointestinal problems. If you start having severe abdominal pain, severe vomiting, or bloody diarrhea, you should be reevaluated by your physician or urgent care immediately. Follow up with your Primary Care Provider or return to clinic if symptoms do not improve within 3-5 days 04/11/2024 Acute non-recurrent sinusitis, unspecified location (ICD-10 - J01.90) Rest and drink more liquids, especially water. You may use a humidifier or vaporizer to help keep the drainage moist. Sczj-psi-fkebefj Nasal Saline may help the stuffy and runny nose. Use Ibuprofen and or Tylenol as needed for fever, chills, body aches or pain. Children 5 years old should not be given pjqq-sbk-qivtywq cough and cold medications such as guaifenesin and dextromethorphan. If you're over age 5, you may try vrfp-mlg-nbrkgzs cold medications such as guaifenesin and dextromethorphan, or multi-symptom cold reliever such as Dayquil to help reduce the symptoms. Antibiotics have been prescribed. You should take these until completed and follow the directions. Antibiotics can sometimes cause upset stomach, and in rare cases, serious allergic reactions or serious gastrointestinal problems. If you start having severe abdominal pain, severe vomiting, or bloody diarrhea, you should be reevaluated by your physician or urgent care immediately. Follow up with your Primary Care Provider or return to clinic if symptoms do not improve within 3-5 days 09/19/2024 Acute non-recurrent sinusitis, unspecified location (ICD-10 - J01.90) Rest and drink more liquids, especially water. You may use a humidifier or vaporizer to help keep the drainage moist. Qezf-zax-mtlpcrg Nasal Saline may help the stuffy and runny nose. Use Ibuprofen and or Tylenol as needed for fever, chills, body aches or pain. Children 5 years old should not be given fbdf-rlg-qxeigcv cough and cold medications such as guaifenesin and dextromethorphan. If you're over age 5, you may try txis-qqa-vghhutf cold medications such as guaifenesin and dextromethorphan, or multi-symptom cold reliever such as Dayquil to help reduce the symptoms. Antibiotics have been prescribed. You should take these until completed and follow the directions. Antibiotics can sometimes cause upset stomach, and in rare cases, serious allergic reactions or serious gastrointestinal problems. If you start having severe abdominal pain, severe vomiting, or bloody diarrhea, you should be reevaluated by your physician or urgent care immediately. Follow up with your Primary Care Provider or return to clinic if symptoms do not improve within 3-5 days 10/23/2024 Dysuria (ICD-10 - R30.0) defers urine testing trial of cefdinir fu if not improving 10/29/2024 Frequency (ICD-10 - R35.0) 09/19/2024 Nasal congestion (ICD-10 - R09.81) 04/11/2024 Nasal congestion (ICD-10 - R09.81) 03/13/2024 Nasal congestion (ICD-10 - R09.81) Plan Of Treatment Pending Test Test Name Order Date UA (URINALYSIS, COMPLETE) 10/29/2024 CULTURE, URINE w SENSITIVITY 10/29/2024 MRI Lumbar Spine w/o contrast 09/15/2022 MRI LSPINE WO CON 11/08/2022 XR LSPINE 2_3 VIEWS 11/08/2022 URINALYSIS MICROSCOPIC 10/29/2024 Insurance Providers Payer Name Payer Address Payer Phone Subscriber Number Group Number Insured Name Patient Relationship to Insured Coverage Start Date Coverage End Date SHAWNCOURTNEY QUEZADA [employer] EXCHANGE [address] [place] [address] [id number] Alfa Brower Spouse - patient is the spouse of the insured 3 Medical (General) History Medical History History ICD Code Aphthous ulcer of mouth K12.0 Other low back pain M54.59 Over weight E66.3 COVID-19 virus infection U07.1 Acute sinusitis J01.90 Well adult Z00.00 Lobar pneumonia, unspecified organism J1 8.1 Cellulitis L03.90 Osteoarthritis of knee M17.9 Hypertension I10 Plantar fasciitis M72.2 Allergic rhinitis, seasonal J30.2 Asthma J45.909 Surgical History Surgery Date(Month/Year) Spinal fusion L3-L5 Tonsillectomy Gallbladder
[2024-10-30 16:32] LABS: Bilirubin Urine NEGATIVE (NEGATIVE); Blood Urine LARGE (NEGATIVE); Clarity Urine SL CLOUDY (CLEAR); Color Urine YELLOW (YELLOW); Glucose Urine UA NEGATIVE (NEGATIVE); Ketones Urine NEGATIVE (NEGATIVE); Leukocyte Esterase Urine NEGATIVE (NEGATIVE); Nitrite Urine NEGATIVE (NEGATIVE); Protein Urine TRACE mg/dL (NEG/TRACE); Specific Gravity Urine >=1.030 (1.005-1.025); Urobilinogen Urine 0.2 EU/dL (0.2-1.0)
[2024-10-30 16:53] LABS: Bacteria Urine SMALL #/HPF (NONE SEEN); Cast Seen? NONE SEEN #/LPF (NONE SEEN); Crystals Seen? None Seen #/HPF (None Seen); Mucus Urine SMALL (NONE SEEN); RBC Urine 50-75 #/HPF (0-2); Squamous Epithelial Cell Urine FEW #/LPF (NONE/RARE); Transitional Epi Cells Urine RARE #/LPF (NONE SEEN); Urine Culture Indicated ALREADY ORDERED; WBC Urine 0-2 #/HPF (NONE SEEN)
--- OUTSIDE RECORDS SUMMARY | 2024-10-30 18:19 | XMS_ITS | CCD ---
Author Organization [facility] Care Team Providers Care Lap Machine Tender Name Role Phone RADHA PERKINS Admitting Unavailable [...] Reference Range Facil ity Follow-Upon 05-17-2024 Follow-Up [id number] Ann-Marie Brower 1970 F Date Provider Department Center 05/17/2024 CEDRIC POON [facility] No family history on file Level of Service:90404 [place] OFFICE/OUTPATIENT ESTABLISHED LOW MDM 20 MIN [facility] 36on 04-04-2024 36 Left message for patient that appointment on 05/03 was rescheduled d/t out of town [facility] Follow-Upon 02-16-2024 Follow-Up [id number] Ann-Marie Brower 1970 F Date Provider Department Center 02/16/2024 CEDRIC POON [facility] No family history on file Level of Service:69158 [place] OFFICE/OUTPATIENT ESTABLISHED SF MDM 10 MIN [facility] 36on 08-18-2023 36 Sent 2 days ago [facility] Refillon 08-16-2023 Refill [id number] Ann-Marie Brower 1970 Date Provider Department Center 08/16/2023 CEDRIC POON [facility] No family history on file Reason for Visit and Comments: Med Refill [[id number]] [facility] Office Visiton 08-03-2023 Follow-up visit [id number] Ann-Marie Brower Ian 1970 Date Provider Department Center 08/03/2023 CEDRIC POON [facility] No family history on file Level of Service:18730 [place] POSTOP FOLLOW UP VISIT RELATED TO ORIGINAL PX (GC) Reason for Visit and Comments: Post-op [483] [facility] Refillon 07-13-2023 Refill [id number] Ann-Marie Brower Ian 1970 Date Provider Department Center 07/13/2023 12470-CENMPEDCLARA GARC[facility]A [facility] No family history on file Reason for Visit and Comments: Med Refill [[id number]] [facility] Office Visiton 06-22-2023 Follow-up visit [id number] InocenteAnn-Marie Sosa 1970 Provider Department [place] 06/22/2023 CEDRIC POON [facility] No family history on file Level of Service:12477 [place] POSTOP FOLLOW UP VISIT RELATED TO ORIGINAL PX (GC) Reason for Visit and Comments: Pain [136] Post-op [483] [facility] 36on 05-30-2023 36 called in stating that they need to change her PO appointment. Also asked if they can have a refill on her pain medication. Appointment was changed to 06/22 and prescription was sent to Dr. Alexis to be signed. [facility] Refillon 05-30-2023 Refill [id number] Jude Browerjesus Sosa 1970 F Date Provider Department Center 05/30/2023 CEDRIC POON [facility] No family history on file [facility] Covid-19 PCR (CVDTB)on 04-22 SARS-CoV-2 (COVID-19) RNA CHERYL+probe Ql (Unsp spec) Not detected Normal NOT DETECTED [facility] Comment on above: Result Comment: This test is not yet approved or cleared by the [place] FDA. When there are no FDA-approved or cleared tests available, and other criteria are met, FDA can make tests available under an emergency access mechanism called an Emergency Use Authorization (EUA). The EUA for this test is supported by the Broom Machine Operator of Health and Human Service's (HHS's) declaration [...] SARS-CoV-2. Performed By: #### C VDTBH #### [facility] Laboratory [address] [place] [address] Dr. Micheal Fuentes INFLUENZA A AND B AGon 05-10 [facility] SEE BELOW Normal [facility] Comment on above: Result Comment: Nega tive for Flu A protein angiten. Infection due to Flu A cannot be ruled out. Flu A angiten in the sample may be below the detection limit of the test. Performed By: #### I NFLUAB #### [facility] [address] [place] [address] Dr. Mic[facility]al [facility] SEE BEL[facility] Normal [facility] Comment on above: Result Comment: Nega tive for Flu B protein antigen. Infection due to Flu B cannot be ruled out. Flu B antigen in the sample may be below the detection limit of the test. Performed By: #### I NFLUAB #### [facility] [address] [place] [address] Dr. Micheal Fuentes INFLUENZA A AG Negative Normal NEGATIVE SEE COMMENT [facility] Comment on above: Performed By: #### I NFLUAB #### [facility] Laboratory [address] [place] [address] [address] Micheal Fuentes INFLUENZA B AG Negative Normal NEGATIVE SEE COMMENT [facility] Comment on above: Performed By: #### I NFLUAB #### [facility] [address] [place], [place] [address] Dr. Micheal Fuentes INTERNAL CONTROLS Within Normal Limits Normal Wi thin Normal Limits [facility] Comment on above: Performed By: #### I NFLUAB #### [facility] [address] [place], [place] [address] Dr. Micheal Fuentes MG MAMM SCREEN 3D CHARLIE CADon 05-07-2022 MG MAMM SCREEN 3D CHARLIE CAD Patient: ANN-MARIE BROWER Exam Date: 05/07/2022 : 1970 Gender:F Ordering : DR VANE ADORNO . Admission #: [id number] Family : Order #: [id number] CLICK HERE TO VIEW EXAM RADIOLOGY REPORT [...] breast cancer at age 41. LOCATION: [facility] BREAST COMPOSITION: Scattered areas fibroglandular density. FINDINGS: [...] MD on 05/07/2022 at 09:02 Normal [facility] Encounters Encounter Date Encounter Type Care Provider Facility Start: 05-17-2024 ambulatory [facility] Start: 02-16-2024 ambulatory [facility] Start: 08-03-2023 End: 08-03-2023 ambulatory [facility] Start: 06-22-2023 ambulatory [facility] Start: 07-23-[address] VANE ADORNO . Facili ty: Start: 05-10-2022 End: 05-10-[address] VANE ADORNO . Facility: Start: 05-07-2022 End: 05-08-[address] VANE ADORNO . Facility: Start: 11-30-2021 End: 11-30-2021 ambulatory RADHA PERKINS Facility: Payers Date Payer Category Payer Unknown [id number] 1970 Unknown [id number] 2.16.84 [id number] 1970 Unknown [id number] 2.16.84 [id number] 1970 Unknown [id number] 2.16.84 [id number] 1970 Unknown [id number] 2.16.84 [id number] Progress note 05-17-2024 Note Date & Type [...] Rfl: 0 ergocalciferol (Vitamin D2) 1.25 MG (68590 Units) capsule, TAKE 1 CAPSULE (50,000 UNITS) [...] nad fusion 12 (more content not included)... [facility] Progress note 02-16-2024 Note Date & Type [...] activities as tolerated Follow up 6 months [facility] Progress note 08-03-2023 Note Date & Type [...] MD PGY-4 Orthopedic Surgery [facility] By using the attestations below, the [...] be an additional personal documentation from me. [facility] Progress note 06-22-2023 Note Date & Type [...] of low back pain that started around [place] last year 2021. Patient states that she [...] her ankle and foot region. Patient takes ypta-qxs-damprll anti-inflammatories for pain however she does not [...] D - Patie (more content not included)... [facility] Summary Purpose Family History No Family History Records FoundNo Family History Records Found Advance Directives No Advanced Directives Records FoundNo Advanced Directives Records Found Additional Source Comments INFORMATION SOURCE (unrecogn ized section and content) DATE CREATED AUTHOR 10/29/2022 [facility] DATE CREATED AUTHOR AUTHOR'S ORGANIZ ATION 05/21/2024 [facility] FOR RECORDS PERTAINING TO PATIENTS WHO [...] BE BASED ON THE PRIMARY CLINICAL RECORDS. [employer] provides no warranty or guarantee of the accuracy or completeness of information in this document.
== END 2024-10-30 16:16 | disposition home or self-care (01) ==
LOC: LAB 16:15
PROVIDERS: PCP Family Medicine; Visit Provider Family Medicine
DX: R35.0 Frequency of micturition (principal)
CPT/HCPCS: 81001; 87086

== ENCOUNTER 2024-12-04 08:37 | Outpatient (OUT) | payer OTHER, SELFPAY ==
--- NOTE | 2024-12-04 08:41 | XR_ITS ---
The [place] [id number] Patient Name: JASON CASTRO MRN: [id number] date: 1970 Sex: F Assigned Patient Location: [facility] Current Patient Location: [facility] Accession/Order Number: [id number] Exam Date: 12/04/2024 09:12 Report Date: 12/04/2024 09:15 At the request of: VANE AODRNO MD Procedure: XR knee CHARLIE 3V BILATERAL KNEES - 3 views each COMPARISON: None CLINICAL DATA: Bilateral knee pain and swelling laterally with difficulty going down stairs for the past couple days. No injury. AP, lateral and internal oblique views were obtained. No acute fracture or dislocation is noted. There is mild to moderate narrowing at the medial tibiofemoral joint compartments, right side slightly greater than left. There is tricompartment marginal spurring, greatest medially. There is a small amount of joint fluid on both sides, right more than left. No focal soft tissue swelling is seen. XR/XR knee CHARLIE 3V IMPRESSION: DEGENERATIVE CHANGES, GREATEST MEDIALLY. NO ACUTE BONY FINDINGS. Impression dictated by: Nancy Rios M.D. 12/04/2024 9:15 AM Dictation Location: [place] [address] Electronically authenticated by: [id number] Y Date: 12/04/2024 09:15
--- OUTSIDE RECORDS SUMMARY | 2024-12-04 09:00 | XMS_ITS | CCD ---
Author Organization [facility] Care Team Providers Care Display Associate Name Role Phone RADAH PERKINS Admitting Unavailable GREGORIO, RADHA Primary Care [...] Reference Range Facil ity Follow-Upon 05-17-2024 Follow-Up [id number] Ann-Marie Brower 1970 F Date Provider Department Center 05/17/[address] [facility] No family history on file Level of Service:00068 [place] OFFICE/OUTPATIENT ESTABLISHED LOW MDM 20 MIN [facility] 36on 04-04-2024 36 Left message for patient that appointment on 05/03 was rescheduled d/t out of town [facility] Follow-Upon 02-16-2024 Follow-Up [id number] Ann-Marie Brower 1970 F Date Provider Department Center 02/16/[address] [facility] No family history on file Level of Service:99203 [place] OFFICE/OUTPATIENT ESTABLISHED SF MDM 10 MIN [facility] 36on 08-18-2023 36 Sent 2 days ago [facility] Refillon 08-16-2023 Refill [id number] Ann-Marie Brower 1970 Date Provider Department Center 08/16/2023 CEDRIC POON [facility] No family history on file Reason for Visit and Comments: Med Refill [[id number]] [facility] Office Visiton 08-03-2023 Follow-up visit [id number] Ann-Marie Brower Ian 1970 Date Provider Department Center 08/03/2023 CEDRIC POON [facility] No family history on file Level of Service:47421 [place] POSTOP FOLLOW UP VISIT RELATED TO ORIGINAL PX (GC) Reason for Visit and Comments: Post-op [483] [facility] Refillon 07-13-2023 Refill [id number] Ann-Marie Brower Ian 1970 Date Provider Department Center 07/13/2023 [id number] [facility] [place] [facility] No family history on file Reason for Visit and Comments: Med Refill [[id number]] [facility] Office Visiton 06-22-2023 Follow-up visit [id number] InocenteAnn-Marie Sosa 1970 Provider Department [place] 06/22/2023 CEDRIC POON [facility] No family history on file Level of Service:64130 [place] POSTOP FOLLOW UP VISIT RELATED TO ORIGINAL PX (GC) Reason for Visit and Comments: Pain [136] Post-op [483] [facility] 36on 05-30-2023 36 called in stating that they need to change her PO appointment. Also asked if they can have a refill on her pain medication. Appointment was changed to 06/22 and prescription was sent to Dr. Alexis to be signed. [facility] Refillon 05-30-2023 Refill [id number] Jude Browerjesus Sosa 1970 F Date Provider Department Center 05/30/2023 CEDRIC POON [facility] No family history on file [facility] Covid-19 PCR (CVDTB)on 04-22 SARS-CoV-2 (COVID-19) RNA CHERYL+probe Ql (Unsp spec) Not detected Normal NOT DETECTED [facility] Comment on above: Result Comment: This test is not yet approved or cleared by the [place] FDA. When there are no FDA-approved or cleared tests available, and other criteria are met, FDA can make tests available under an emergency access mechanism called an Emergency Use Authorization (EUA). The EUA for this test is supported by the [employer] Worker of Health and Human Service's (HHS's) declaration [...] SARS-CoV-2. Performed By: #### C VDTBH #### [facility] [address] [place] [address] Dr. Micheal Fuentes INFLUENZA A AND B AGon 05-10 [facility] SEE BELOW Normal [facility] Comment on above: Result Comment: Nega tive for Flu A protein angiten. Infection due to Flu A cannot be ruled out. Flu A angiten in the sample may be below the detection limit of the test. Performed By: #### I NFLUAB #### [facility] [address] [place] [address] Dr. [facility] Normal [facility] Comment on above: Result Comment: Nega tive for Flu B protein antigen. Infection due to Flu B cannot be ruled out. Flu B antigen in the sample may be below the detection limit of the test. Performed By: #### I NFLUAB #### [facility] [address] [place] [address] Dr. Micheal Fuentes INFLUENZA A AG Negative Normal NEGATIVE SEE COMMENT [facility] Comment on above: Performed By: #### I NFLUAB #### [facility] [address] [address] [address] Micheal Fuentes INFLUENZA B AG Negative Normal NEGATIVE SEE COMMENT [facility] Comment on above: Performed By: #### I NFLUAB #### [facility] [address] [place], [place] [address] Dr. Micheal Fuentes INTERNAL CONTROLS Within Normal Limits Normal Wi thin Normal Limits [facility] Comment on above: Performed By: #### I NFLUAB #### [facility] [address] [place], [place] [address] Dr. Micheal Fuentes MG MAMM SCREEN 3D CHARLIE CADon 05-07-2022 MG MAMM SCREEN 3D CHARLIE CAD Patient: ANN-MARIE BROWER Exam Date: 05/07/2022 : 1970 Gender:F Ordering : DR VANE ADORNO . Admission #: [id number] Family : Order #: [id number] CLICK HERE TO VIEW EXAM RADIOLOGY REPORT [...] breast cancer at age 41. LOCATION: [facility] BREAST COMPOSITION: Scattered areas fibroglandular density. [...] MD on 05/07/2022 at 09:02 Normal [facility] Encounters Encounter Date Encounter Type Care Provider Facility Start: 05-17-2024 ambulatory [facility] Start: 02-16-2024 ambulatory [facility] Start: 08-03-2023 End: 08-03-2023 ambulatory [facility] Start: 06-22-2023 ambulatory [facility] Start: 07-23-[address] VANE ADORNO . Facili ty: Start: 05-10-2022 End: 05-10-[address] VANE ADORNO . Facility: Start: 05-07-2022 End: 05-08-[address] VANE ADORNO . Facility: Start: 11-30-2021 End: 11-30-2021 ambulatory RADHA PERKINS Facility: Payers Date Payer Category Payer Unknown [id number] 1970 Unknown [id number] 2.16.84 [id number] 1970 Unknown [id number] 2.16.84 [id number] 1970 Unknown [id number] 2.16.84 [id number] 1970 Unknown [id number] 2.16.84 [id number] Progress note 05-17-2024 Note Date & Type [...] Rfl: 0 ergocalciferol (Vitamin D2) 1.25 MG (72819 Units) capsule, TAKE 1 CAPSULE (50,000 UNITS) [...] nad fusion 12 (more content not included)... [facility] Progress note 02-16-2024 Note Date [...] activities as tolerated Follow up 6 months [facility] Progress note 08-03-2023 Note Date [...] activities. Otf Plunkett MD PGY-4 Orthopedic Surgery [facility] By using the attestations below, the [...] be an additional personal documentation from me. [facility] Progress note 06-22-2023 Note Date [...] of low back pain that started around [place] last year 2021. Patient states that she [...] her ankle and foot region. Patient takes qalv-zxf-eamflcv anti-inflammatories for pain however she does not [...] D - Patie (more content not included)... [facility] Summary Purpose Family History No Family History Records FoundNo Family History Records Found Advance Directives No Advanced Directives Records FoundNo Advanced Directives Records Found Additional Source Comments INFORMATION SOURCE (unrecogn ized section and content) DATE CREATED AUTHOR 10/29/2022 [facility] DATE CREATED AUTHOR AUTHOR'S ORGANIZ ATION 05/21/2024 [facility] FOR RECORDS PERTAINING TO PATIENTS WHO ARE [...] BE BASED ON THE PRIMARY CLINICAL RECORDS. [employer] provides no warranty or guarantee of the accuracy or completeness of information in this document.
== END 2024-12-04 08:38 | disposition home or self-care (01) ==
LOC: RAD 08:38
PROVIDERS: PCP Family Medicine; Visit Provider Family Medicine
DX: M17.0 Bilateral primary osteoarthritis of knee (principal)
CPT/HCPCS: 73562